=== PATIENT | male | born 1980 | race Caucasian/White ===

== ENCOUNTER 2017-08-23 00:32 | Emergency (ER) | payer OTHER ==
[~2017-08-23] VITALS: Ht 188 cm; Wt 90.7 kg
[~2017-08-23 00:32] MED LIST: BUTALB-APAP-CA1 EACH PO; HYDROXYZINE HCL25 M1 PO; IBUPROFEN 800800 MG PO; NOHOMEMEDICATIONS; XANAX 0.25 MG0.25 MG PO; XANAX 1 MG TABLE1 MG PO
[2017-08-23] MEDS ORDERED: NOHOMEMEDICATIONS (00:41)
[2017-08-23 02:47] VITALS: BP 00/00
[2017-08-23 05:32] LABS: ABSOLUTE LYMPHOCYTES 1.6 thou/uL (0.8-5.3); ABSOLUTE MONOCYTES 0.5 thou/uL (0.0-1.2); BASOPHILS 0.8 %; EOSINOPHILS 0.7 %; HEMATOCRIT 42.7 % (42.0-52.0); HEMOGLOBIN 14.4 gm/dL (14.0-18.0); LYMPHOCYTES 25.7 %; MCH 31.5 pg (26.0-34.0); MCHC 33.7 g/dL (28.0-37.0); MCV 93.6 fL (80.0-100.0); MONOCYTES 7.4 %; MPV 11.8 fl. (7.2-11.1); NUCLEATED RBCS 0 /100WBC; PLATELET COUNT* 119 thou/uL (150-400); POLYS 65.4 %; RBC 4.57 mil/uL (4.50-6.00); RDW-CV 13.7 % (10.5-14.5); WBC 6.1 thou/uL (4.0-11.0)
[2017-08-23 05:43] LABS: ALKALINE PHOSPHATASE 46 U/L (46-116); ANION GAP 11 mmol/L (7-16); BUN 14 mg/dL (7-18); CHLORIDE 107 mmol/L (98-107); CO2 28 mmol/L (21-32); CREATININE 1.2 mg/dL (0.6-1.3); GLUCOSE 87 mg/dL (70-99); POTASSIUM 3.8 mmol/L (3.5-5.1); SGOT 10 U/L (15-37); SGPT 14 U/L (30-65); SODIUM 146 mmol/L (136-145); TOTAL BILIRUBIN 0.4 mg/dL (<0.1-1.0); TOTAL PROTEIN 7.1 g/dL (6.4-8.2)
[2017-08-23 05:44] LABS: TROPONIN-I LEVEL <0.06 ng/mL (<0.06)
--- NOTE | 2017-08-23 10:49 | EKG ---
[place] [address] ELECTROCARDIOGRAM REPORT Name: JOHNNY GREENWOOD [id number] Admission: 08/23/17 Attend Phys: Discharge: 08/23/17 Date of : 82 Report #: [id number] THIS REPORT FOR: //name// [facility] ED Test Date: 2017-08-23 Test Time: 00:38:08 Pat Name: JOHNNY GREENWOOD Department: Room: Gender: M Cardiology Physician: FORTUNATO : 1980 Requested By: Nkechi Poon Order Number: [id number] MD: Anson Toney Measurements Intervals [place] Rate: 74 P: 58 OR: 172 QRS: 16 QRSD: 98 T: 55 QT: 364 QTc: 404 Interpretive Statements Sinus rhythm Probable left atrial enlargement RSR' in V1 or V2, right VCD or RVH No previous ECG available for comparison Electronically Signed On 08-23-2017 10:48:53 CDT by Anson Toney [email or web address] <ELECTRONICALLY SIGNED> By: Anson Toney MD, [facility] 08/23/17 1048 0038 0038 Anson Toney MD, FACC /EPI
[2018-02-27] MEDS ORDERED: KEPPRA750 MG PO (19:46)
[2018-02-27] MEDS ORDERED: ABILIFY10 MG PO (22:22)
== END 2017-08-23 05:26 | disposition home or self-care (01) ==
LOC: M.ERS 00:32
PROVIDERS: Emergency Medicine
DX: R10.13 Epigastric pain (principal); Z88.5 Allergy status to narcotic agent; Z88.6 Allergy status to analgesic agent

== ENCOUNTER 2017-10-01 14:10 | Emergency (ER) | payer OTHER ==
[~2017-10-01] VITALS: Ht 182.9 cm; Wt 90.7 kg
[2017-10-01 15:02] LABS: ABSOLUTE LYMPHOCYTES 0.9 thou/uL (0.8-5.3); ABSOLUTE MONOCYTES 0.4 thou/uL (0.0-1.2); ABSOLUTE NEUTROPHILS 2.4 thou/uL (1.6-8.1); BASOPHILS 1.1 %; EOSINOPHILS 1.1 %; HEMATOCRIT 41.2 % (42.0-52.0); HEMOGLOBIN 13.9 gm/dL (14.0-18.0); LYMPHOCYTES 23.6 %; MCH 31.5 pg (26.0-34.0); MCHC 33.7 g/dL (28.0-37.0); MCV 93.6 fL (80.0-100.0); MONOCYTES 10.7 %; MPV 11.4 fl. (7.2-11.1); NUCLEATED RBCS 0 /100WBC; PLATELET COUNT* 104 thou/uL (150-400); POLYS 63.5 %; RDW-CV 13.8 % (10.5-14.5); WBC 3.8 thou/uL (4.0-11.0)
[2017-10-01 15:15] LABS: URINE BILIRUBIN NEGATIVE (Negative); URINE BLOOD NEGATIVE (Negative); URINE CLARITY CLEAR; URINE COLOR YELLOW; URINE GLUCOSE-RANDOM NEGATIVE (Negative); URINE KETONES 1+ (Negative); URINE LEUKOCYTES-REFLEX NEGATIVE (Negative); URINE NITRITE-REFLEX NEGATIVE (Negative); URINE PROTEIN NEGATIVE (Negative); URINE UROBILINOGEN 0.2 E.U./dl (0.2-1.0)
[2017-10-01 15:23] LABS: AMP/METHAMP Negative (Negative); BARBITURATES Negative (Negative); BENZODIAZEPINES Negative (Negative); COCAINE Negative (Negative); METHADONE Negative (Negative); OPIATES Negative (Negative); PCP Negative (Negative); THC Negative (Negative)
[2017-10-01 15:28] LABS: POTASSIUM 4.2 mmol/L (3.5-5.1)
[2017-10-01 15:29] LABS: CALCIUM 8.8 mg/dL (8.5-10.1); CREATININE 1.2 mg/dL (0.6-1.3); TOTAL BILIRUBIN 0.8 mg/dL (<0.1-1.0); TOTAL PROTEIN 6.7 g/dL (6.4-8.2)
[2017-10-01 16:17] VITALS: BP 145/89
[2018-02-27] MEDS ORDERED: KEPPRA750 MG PO (19:46)
[2018-02-27] MEDS ORDERED: ABILIFY10 MG PO (22:22)
== END 2017-10-01 16:18 | disposition home or self-care (01) ==
LOC: M.ERS 14:10
PROVIDERS: Personal Emergency Response Attendant
DX: F41.9 Anxiety disorder, unspecified (principal); G89.29 Other chronic pain; M54.9 Dorsalgia, unspecified; Z88.6 Allergy status to analgesic agent; Z88.8 Allergy status to other drugs, medicaments and biological substances

== ENCOUNTER 2017-10-28 05:48 | Emergency (ER) | payer OTHER ==
[~2017-10-28] VITALS: Ht 188 cm; Wt 90.7 kg
[2017-10-28 06:25] LABS: ABSOLUTE LYMPHOCYTES 1.4 thou/uL (0.8-5.3); ABSOLUTE MONOCYTES 0.6 thou/uL (0.0-1.2); ABSOLUTE NEUTROPHILS 2.1 thou/uL (1.6-8.1); EOSINOPHILS 0.7 %; HEMATOCRIT 40.5 % (42.0-52.0); HEMOGLOBIN 13.6 gm/dL (14.0-18.0); MCH 31.5 pg (26.0-34.0); MCHC 33.6 g/dL (28.0-37.0); MCV 93.7 fL (80.0-100.0); MPV 10.8 fl. (7.2-11.1); NUCLEATED RBCS 0 /100WBC; PLATELET COUNT* 120 thou/uL (150-400); POLYS 50.3 %; RBC 4.32 mil/uL (4.50-6.00); RDW-CV 13.9 % (10.5-14.5); WBC 4.2 thou/uL (4.0-11.0)
[2017-10-28 06:41] LABS: ANION GAP 17 mmol/L (7-16); BUN 8 mg/dL (7-18); CALCIUM 9.2 mg/dL (8.5-10.1); CHLORIDE 103 mmol/L (98-107); CO2 20 mmol/L (21-32); CREATININE 1.3 mg/dL (0.6-1.3); GLUCOSE 68 mg/dL (70-99); POTASSIUM 3.6 mmol/L (3.5-5.1); SODIUM 140 mmol/L (136-145)
[2017-10-28 06:46] LABS: ALBUMIN 4.2 g/dL (3.4-5.0); ALKALINE PHOSPHATASE 34 U/L (46-116); LIPASE 48 U/L (73-393); SGOT 18 U/L (15-37); SGPT 21 U/L (30-65); TOTAL BILIRUBIN 0.7 mg/dL (<0.1-1.0); TOTAL PROTEIN 7.5 g/dL (6.4-8.2); TROPONIN-I LEVEL <0.06 ng/mL (<0.06)
[2017-10-28 09:52] VITALS: BP 0/0
[2018-02-27] MEDS ORDERED: KEPPRA750 MG PO (19:46)
[2018-02-27] MEDS ORDERED: ABILIFY10 MG PO (22:22)
== END 2017-10-28 09:53 | disposition home or self-care (01) ==
LOC: M.ERS 05:48
PROVIDERS: Emergency Medicine
DX: E16.2 Hypoglycemia, unspecified (principal); M54.5 Low back pain; G89.29 Other chronic pain; Z88.5 Allergy status to narcotic agent

== ENCOUNTER 2018-03-25 21:40 | Inpatient (IN) | payer OTHER ==
[~2018-03-25] VITALS: Ht 188 cm; Wt 93.4 kg
[~2018-03-25 21:40] MED LIST changes: +ABILIFY10 MG PO; +KEPPRA750 MG PO
[2018-03-25 21:42] VITALS: BP 139/92
[2018-03-25] MEDS ORDERED: ABILIFY MAINTE300 M1 IM (21:51)
[2018-03-25] MEDS ORDERED: CORTEF 20 MG TA20 MG PO (21:52)
[2018-03-25 22:02] LABS: ABSOLUTE BASOPHILS 0.1 thou/uL (0.0-0.2); ABSOLUTE LYMPHOCYTES 0.9 thou/uL (0.8-5.3); ABSOLUTE MONOCYTES 0.4 thou/uL (0.0-1.2); BASOPHILS 1.1 %; EOSINOPHILS 0.4 %; HEMATOCRIT 39.5 % (42.0-52.0); HEMOGLOBIN 13.2 gm/dL (14.0-18.0); LYMPHOCYTES 16.8 %; MCH 31.6 pg (26.0-34.0); MCHC 33.4 g/dL (28.0-37.0); MCV 94.5 fL (80.0-100.0); MONOCYTES 6.6 %; MPV 10.5 fl. (7.2-11.1); NUCLEATED RBCS 0 /100WBC; PLATELET COUNT* 147 thou/uL (150-400); POLYS 75.1 %; RBC 4.18 mil/uL (4.50-6.00); RDW-CV 14.6 % (10.5-14.5); WBC 5.3 thou/uL (4.0-11.0)
[2018-03-25 22:16] LABS: URINE BILIRUBIN NEGATIVE (Negative); URINE BLOOD NEGATIVE (Negative); URINE CLARITY CLEAR; URINE COLOR YELLOW; URINE GLUCOSE-RANDOM NEGATIVE (Negative); URINE KETONES NEGATIVE (Negative); URINE LEUKOCYTES-REFLEX NEGATIVE (Negative); URINE NITRITE-REFLEX NEGATIVE (Negative); URINE PROTEIN NEGATIVE (Negative); URINE SPECIFIC GRAVITY <= 1.005 (1.005-1.030); URINE UROBILINOGEN 0.2 E.U./dl (0.2-1.0)
[2018-03-25 22:24] LABS: ANION GAP 9 mmol/L (7-16); BUN 10 mg/dL (7-18); CHLORIDE 106 mmol/L (98-107); CO2 26 mmol/L (21-32); CREATININE 1.1 mg/dL (0.6-1.3); GLUCOSE 87 mg/dL (70-99); POTASSIUM 4.1 mmol/L (3.5-5.1); SODIUM 141 mmol/L (136-145)
[2018-03-25 22:43] LABS: ALBUMIN 3.9 g/dL (3.4-5.0); ALKALINE PHOSPHATASE 37 U/L (46-116); LIPASE 87 U/L (73-393); SGOT 17 U/L (15-37); SGPT 30 U/L (30-65); TOTAL BILIRUBIN 0.3 mg/dL (<0.1-1.0); TOTAL PROTEIN 7.2 g/dL (6.4-8.2); TROPONIN-I LEVEL <0.06 ng/mL (<0.06)
[2018-03-25 22:46] LABS: AMP/METHAMP Negative (Negative); BARBITURATES Negative (Negative); BENZODIAZEPINES Negative (Negative); COCAINE Negative (Negative); METHADONE Negative (Negative); OPIATES Negative (Negative); PCP Negative (Negative); THC Negative (Negative)
[2018-03-26 00:40] VITALS: BP 134/85
[2018-03-26 00:45] VITALS: BP 123/82
[2018-03-26 04:41] VITALS: BP 116/63
[2018-03-26 08:00] VITALS: BP 129/85
--- NOTE | 2018-03-26 11:09 | EKG ---
[place] [address] ELECTROCARDIOGRAM REPORT Name: KRYSTYNAJOHNNY Room: [address] ADM IN ..#: [id number] Admission: 03/25/18 Attend Phys: Galindo Palacios, Discharge: Date of : 82 Report #: [id number] THIS REPORT FOR: //name// [facility] ED Test Date: 2018-03-25 Test Time: 21:53:45 Pat Name: JOHNNY GREENWOOD Department: Room: [facility] Gender: M Research Animal Attendant: Toño COREAS : 1980 Requested By: Husam Begum Order Number: [id number] MD: Anson Toney Measurements Intervals [place] Rate: 87 P: 34 DC: 152 QRS: -17 QRSD: 98 T: 34 QT: 375 QTc: 451 Interpretive Statements Sinus rhythm Borderline left axis deviation RSR' in V1 or V2, probably normal variant ST elev, probable normal early repol pattern Compared to ECG 08/23/2017 00:38:08 no change Electronically Signed On 03-26-2018 11:09:40 CDT by Anson Toney [email or web address] <ELECTRONICALLY SIGNED> By: Anson Toney MD, FACC 03/26/18 1109 52 52 Anson Toney MD, FAC /EPI
[2018-03-26 16:00] VITALS: BP 129/72
[2018-03-26 20:00] VITALS: BP 113/71
[2018-03-26 23:05] LABS: URINE BILIRUBIN NEGATIVE (Negative); URINE BLOOD NEGATIVE (Negative); URINE CLARITY CLEAR; URINE COLOR YELLOW; URINE GLUCOSE-RANDOM NEGATIVE (Negative); URINE KETONES NEGATIVE (Negative); URINE LEUKOCYTES-REFLEX NEGATIVE (Negative); URINE NITRITE-REFLEX NEGATIVE (Negative); URINE PROTEIN NEGATIVE (Negative); URINE SPECIFIC GRAVITY 1.015 (1.005-1.030); URINE UROBILINOGEN 0.2 E.U./dl (0.2-1.0)
[2018-03-27] VITALS: BP 129/76
[2018-03-27 04:00] VITALS: BP 114/62
[2018-03-27 08:00] VITALS: BP 118/79
[2018-03-27 11:48] VITALS: BP 114/64
[2018-03-27 20:00] VITALS: BP 128/71
[2018-03-28] VITALS: BP 118/70
[2018-03-28 08:00] VITALS: BP 110/63
[2018-03-28 16:00] VITALS: BP 122/72
[2018-03-28 20:00] VITALS: BP 126/79
[2018-03-29] VITALS: BP 113/59
[2018-03-29 16:00] VITALS: BP 136/81
[2018-03-29 19:49] VITALS: BP 131/83
[2018-03-30 08:43] VITALS: BP 121/76
[2018-03-30 11:13] VITALS: BP 121/76
[2018-03-30 11:22] VITALS: BP 121/76
[2018-03-30] MEDS ORDERED: NEURONTIN300 MG PO (11:25)
[2018-03-30] MEDS ORDERED: FLEXERIL PO (11:26)
[2018-03-30] MEDS ORDERED: TRAMADOL 50 MG50 MG PO (11:26)
[2018-03-30] MEDS ORDERED: IBUPROFEN 200200 M1 PO (11:27)
[2018-03-30] MEDS ORDERED: ATIVAN0.5 M1 PO (11:29)
[2018-03-30 13:15] VITALS: BP 143/94
[2018-03-30 13:40] VITALS: BP 143/94
--- NOTE | 2018-03-31 19:14 | EEG ---
[address] [address] EEG STUDY REPORT Name: JOHNNY GREENWOOD Room: [address] IN M.R.#: [id number] Admission: 03/25/18 Attend Phys: Galindo Palacios, Discharge: 03/30/18 Date of : 82 Report #: [id number] THIS REPORT FOR: //name// CC: Rodrigo Palacios DATE OF SERVICE: 03/27/2018 This patient is being evaluated for syncope. EEG was done by placing the electrodes by standard 10-20 system of electrode placement. Both referential and sequential montages were used for recording. Background activity in this patient's EEG is about 11 Hz and 40 microvolt. The patient went to sleep that is associated with bilaterally symmetrical sleep spindle and vertex sharp waves. Photic stimulation is unremarkable. Throughout the record, no active epileptiform activity was noticed. IMPRESSION: This patient's EEG is within normal limits. Thank you very much for this referral. <ELECTRONICALLY SIGNED> By: Ulises Virk MD 03/31/18 1914 1708 1738Ulises Virk MD /nt
== END 2018-03-30 17:50 | disposition home or self-care (01) | DRG 552 ==
LOC: M.ERS 21:40 → M.TBA-ER 23:41 → M.2W 23:41 → M.ORTHSURG 03-29 08:08
PROVIDERS: Emergency Medicine Emergency Medical Services; Urology; ADMIT Family Medicine
DX: M48.061 Spinal stenosis, lumbar region without neurogenic claudication (principal); E27.40 Unspecified adrenocortical insufficiency; M47.896 Other spondylosis, lumbar region; R33.9 Retention of urine, unspecified; S83.282A Other tear of lateral meniscus, current injury, left knee, initial encounter; G89.29 Other chronic pain; M54.9 Dorsalgia, unspecified; Z88.6 Allergy status to analgesic agent; Z88.8 Allergy status to other drugs, medicaments and biological substances; Z82.49 Family history of ischemic heart disease and other diseases of the circulatory system; Z82.0 Family history of epilepsy and other diseases of the nervous system; Z87.891 Personal history of nicotine dependence

== ENCOUNTER 2018-04-21 18:44 | Emergency (ER) | payer OTHER ==
[~2018-04-21] VITALS: Ht 188 cm; Wt 95.3 kg
[~2018-04-21 18:44] MED LIST changes: +ABILIFY MAINTE300 M1 IM; +ATIVAN0.5 M1 PO; +CORTEF 20 MG TA20 MG PO; +FLEXERIL PO; +IBUPROFEN 200200 M1 PO; +NEURONTIN300 MG PO; +TRAMADOL 50 MG50 MG PO
[2018-04-21] MEDS ORDERED: KEPPRA1000 MG PO (19:02)
[2018-04-21] MEDS ORDERED: DEPAKOTE250 MG PO (19:02)
[2018-04-21 19:41] LABS: ABSOLUTE LYMPHOCYTES 0.9 thou/uL (0.8-5.3); ABSOLUTE MONOCYTES 0.4 thou/uL (0.0-1.2); ABSOLUTE NEUTROPHILS 4.8 thou/uL (1.6-8.1); BASOPHILS 0.6 %; EOSINOPHILS 0.2 %; HEMATOCRIT 37.1 % (42.0-52.0); HEMOGLOBIN 12.4 gm/dL (14.0-18.0); LYMPHOCYTES 14.8 %; MCH 32.2 pg (26.0-34.0); MCHC 33.6 g/dL (28.0-37.0); MCV 96.1 fL (80.0-100.0); MONOCYTES 6.2 %; MPV 11.2 fl. (7.2-11.1); NUCLEATED RBCS 0 /100WBC; PLATELET COUNT* 127 thou/uL (150-400); POLYS 78.2 %; RBC 3.86 mil/uL (4.50-6.00); WBC 6.1 thou/uL (4.0-11.0)
[2018-04-21 19:50] LABS: CALCIUM 8.9 mg/dL (8.5-10.1); CREATININE 1.3 mg/dL (0.6-1.3); POTASSIUM 4.3 mmol/L (3.5-5.1)
[2018-04-21 19:54] LABS: ALBUMIN 3.8 g/dL (3.4-5.0); TOTAL BILIRUBIN 0.3 mg/dL (<0.1-1.0); TOTAL PROTEIN 6.6 g/dL (6.4-8.2)
[2018-04-21 20:26] LABS: URINE BILIRUBIN NEGATIVE (Negative); URINE BLOOD NEGATIVE (Negative); URINE CLARITY CLEAR; URINE COLOR YELLOW; URINE GLUCOSE-RANDOM NEGATIVE (Negative); URINE KETONES NEGATIVE (Negative); URINE LEUKOCYTES NEGATIVE (Negative); URINE NITRITE NEGATIVE (Negative); URINE PROTEIN NEGATIVE (Negative); URINE UROBILINOGEN 0.2 E.U./dl (0.2-1.0)
[2018-04-21 20:31] LABS: AMP/METHAMP Negative (Negative); BARBITURATES Negative (Negative); BENZODIAZEPINES Negative (Negative); COCAINE Negative (Negative); METHADONE Negative (Negative); OPIATES Negative (Negative); PCP Negative (Negative); THC Negative (Negative)
[2018-04-21 22:05] VITALS: BP 137/80
== END 2018-04-21 22:06 | disposition still patient (30) ==
LOC: M.ERS 18:44
PROVIDERS: Nurse Practitioner Family
DX: S83.92XA Sprain of unspecified site of left knee, initial encounter (principal); G40.909 Epilepsy, unspecified, not intractable, without status epilepticus; Z88.6 Allergy status to analgesic agent; Z88.8 Allergy status to other drugs, medicaments and biological substances; X58.XXXA Exposure to other specified factors, initial encounter; Y93.89 Activity, other specified; Y92.89 Other specified places as the place of occurrence of the external cause; Y99.8 Other external cause status

== ENCOUNTER 2018-06-13 07:19 | Emergency (ER) | payer MEDICAID ==
[~2018-06-13] VITALS: Ht 188 cm; Wt 95.3 kg
[~2018-06-13 07:19] MED LIST changes: +CORTEF5 MG PO; +DEPAKOTE250 MG PO; +KEPPRA1000 MG PO
[2018-06-13] MEDS ORDERED: HYDROCORTISONE30 G9 PO (07:46)
[2018-06-13 08:32] LABS: ABSOLUTE LYMPHOCYTES 0.8 thou/uL (0.8-5.3); ABSOLUTE MONOCYTES 0.5 thou/uL (0.0-1.2); ABSOLUTE NEUTROPHILS 2.9 thou/uL (1.6-8.1); BASOPHILS 0.7 %; EOSINOPHILS 0.8 %; HEMATOCRIT 38.5 % (42.0-52.0); HEMOGLOBIN 12.9 gm/dL (14.0-18.0); LYMPHOCYTES 18.3 %; MCH 32.2 pg (26.0-34.0); MCHC 33.5 g/dL (28.0-37.0); MCV 96.1 fL (80.0-100.0); MONOCYTES 11.1 %; MPV 10.2 fl. (7.2-11.1); NUCLEATED RBCS 0 /100WBC; PLATELET COUNT* 101 thou/uL (150-400); POLYS 69.1 %; RBC 4.01 mil/uL (4.50-6.00); RDW-CV 13.9 % (10.5-14.5); WBC 4.2 thou/uL (4.0-11.0)
[2018-06-13 08:45] LABS: CALCIUM 8.5 mg/dL (8.5-10.1); CREATININE 1.3 mg/dL (0.6-1.3); POTASSIUM 4.2 mmol/L (3.5-5.1)
[2018-06-13 08:49] LABS: ALBUMIN 3.3 g/dL (3.4-5.0); TOTAL BILIRUBIN 0.2 mg/dL (<0.1-1.0); TOTAL PROTEIN 6.5 g/dL (6.4-8.2)
[2018-06-13] MEDS ORDERED: MOBIC15 MG PO (10:10)
[2018-06-13 10:16] VITALS: BP 142/90
== END 2018-06-13 10:18 | disposition home or self-care (01) ==
LOC: M.ERS 07:19
PROVIDERS: Personal Emergency Response Attendant
DX: M25.562 Pain in left knee (principal); F41.9 Anxiety disorder, unspecified; R19.7 Diarrhea, unspecified; M54.9 Dorsalgia, unspecified; G89.29 Other chronic pain; Z88.5 Allergy status to narcotic agent; Z88.8 Allergy status to other drugs, medicaments and biological substances; Z95.5 Presence of coronary angioplasty implant and graft

== ENCOUNTER 2018-07-15 12:28 | Emergency (ER) | payer MEDICAID ==
[~2018-07-15] VITALS: Ht 188 cm; Wt 95.3 kg
[~2018-07-15 12:28] MED LIST changes: +BANOPHEN25 M1 PO; +CARAFATE 11 GM/10 M1 PO; +HYDROCORTISONE30 G9 PO; +LIDOPATCH1 EACH TRANSDERM; +MELATONIN5 M1 PO; +MIRALAX17 GM PO; +MOBIC15 MG PO; +PROTONIX40 M1 PO; +TYLENOL325 MG PO
[2018-07-15 13:31] LABS: ABSOLUTE LYMPHOCYTES 0.9 thou/uL (0.8-5.3); ABSOLUTE MONOCYTES 0.3 thou/uL (0.0-1.2); ABSOLUTE NEUTROPHILS 2.5 thou/uL (1.6-8.1); BASOPHILS 1.1 %; EOSINOPHILS 0.6 %; HEMATOCRIT 39.1 % (42.0-52.0); HEMOGLOBIN 13.3 gm/dL (14.0-18.0); LYMPHOCYTES 23.9 %; MCH 31.8 pg (26.0-34.0); MCV 93.4 fL (80.0-100.0); MONOCYTES 8.3 %; MPV 11.8 fl. (7.2-11.1); NUCLEATED RBCS 0 /100WBC; PLATELET COUNT* 100 thou/uL (150-400); POLYS 66.1 %; RBC 4.18 mil/uL (4.50-6.00); WBC 3.7 thou/uL (4.0-11.0)
[2018-07-15 13:36] LABS: ANION GAP 6 mmol/L (7-16); BUN 12 mg/dL (7-18); CALCIUM 8.6 mg/dL (8.5-10.1); CHLORIDE 106 mmol/L (98-107); CO2 28 mmol/L (21-32); CREATININE 1.5 mg/dL (0.6-1.3); GLUCOSE 86 mg/dL (70-99); POTASSIUM 4.1 mmol/L (3.5-5.1); SODIUM 140 mmol/L (136-145)
[2018-07-15 13:42] LABS: ALBUMIN 3.6 g/dL (3.4-5.0); ALKALINE PHOSPHATASE 47 U/L (46-116); SGOT 10 U/L (15-37); SGPT 17 U/L (30-65); TOTAL BILIRUBIN 0.4 mg/dL (<0.1-1.0); TOTAL PROTEIN 6.7 g/dL (6.4-8.2); TROPONIN-I LEVEL <0.06 ng/mL (<0.06)
[2018-07-15 13:50] LABS: AMP/METHAMP Negative (Negative); BARBITURATES Negative (Negative); BENZODIAZEPINES Negative (Negative); COCAINE Negative (Negative); METHADONE Negative (Negative); OPIATES Negative (Negative); PCP Negative (Negative); THC Negative (Negative)
[2018-07-15 13:52] LABS: APTT 27.6 Seconds (25.0-31.3); PROTIME 10.7 Seconds (9.20-11.50)
[2018-07-15 14:18] LABS: URINE BILIRUBIN NEGATIVE (Negative); URINE BLOOD NEGATIVE (Negative); URINE CLARITY CLEAR; URINE COLOR YELLOW; URINE GLUCOSE-RANDOM NEGATIVE (Negative); URINE KETONES NEGATIVE (Negative); URINE LEUKOCYTES-REFLEX NEGATIVE (Negative); URINE NITRITE-REFLEX NEGATIVE (Negative); URINE PROTEIN NEGATIVE (Negative); URINE SPECIFIC GRAVITY <= 1.005 (1.005-1.030); URINE UROBILINOGEN 0.2 E.U./dl (0.2-1.0)
[2018-07-15] MEDS ORDERED: LIDOCAINE VISC100 ML PO (14:42)
[2018-07-15 15:15] VITALS: BP 140/93
--- NOTE | 2018-07-16 12:25 | EKG ---
[place] [address] ELECTROCARDIOGRAM REPORT Name: JOHNNY GREENWOOD Room: [facility]#: [id number] Admission: 07/15/18 Attend Phys: Discharge: 07/15/18 Date of : [birth year] Report #: [id number] THIS REPORT FOR: //name// [facility] ED Test Date: 2018-07-15 Test Time: 13:12:01 Pat Name: JOHNNY GREENWOOD Department: Room: Gender: M Single Ending Machine Operator: Keny CHAWLA : 1980 Requested By: Marbella Jurado Order Number: [id number] MD: Yaakov Bearden Measurements Intervals [place] Rate: 72 P: 45 DE: 179 QRS: -19 QRSD: 102 T: 15 QT: 374 QTc: 410 Interpretive Statements Sinus rhythm Borderline left axis deviation Compared to ECG 03/25/2018 21:53:45 ST (T wave) deviation no longer present Electronically Signed On 07-16-2018 12:25:14 SHELL FREEZING MACHINE OPERATOR by Yaakov Bearden [email or web address] <ELECTRONICALLY SIGNED> By: Yaakov Bearden MD, [facility] 07/16/18 1225 1312 131 Yaakov Bearden MD, [facility] /EPI
== END 2018-07-15 15:15 | disposition left against medical advice (07) ==
LOC: M.ERS 12:28
PROVIDERS: Nurse Practitioner Family
DX: K20.9 Esophagitis, unspecified (principal); J02.9 Acute pharyngitis, unspecified; R07.89 Other chest pain; R06.00 Dyspnea, unspecified; M54.9 Dorsalgia, unspecified; G89.29 Other chronic pain; M25.569 Pain in unspecified knee; Z88.5 Allergy status to narcotic agent; Z88.8 Allergy status to other drugs, medicaments and biological substances

== ENCOUNTER 2018-07-23 01:17 | Emergency (ER) | payer MEDICAID ==
[~2018-07-23] VITALS: Ht 188 cm; Wt 95.3 kg
[~2018-07-23 01:17] MED LIST changes: +LIDOCAINE VISC100 ML PO
[2018-07-23 01:32] VITALS: BP 128/82
== END 2018-07-23 01:33 | disposition home or self-care (01) ==
LOC: M.ERS 01:17
DX: R11.2 Nausea with vomiting, unspecified (principal); G89.29 Other chronic pain; M54.9 Dorsalgia, unspecified; M25.569 Pain in unspecified knee; Z95.5 Presence of coronary angioplasty implant and graft; Z88.5 Allergy status to narcotic agent; Z88.8 Allergy status to other drugs, medicaments and biological substances

== ENCOUNTER 2018-08-18 20:18 | Emergency (ER) | payer MEDICAID ==
[~2018-08-18] VITALS: Ht 188 cm; Wt 109.5 kg
[2018-08-18 20:39] LABS: ABSOLUTE LYMPHOCYTES 1.2 thou/uL (0.8-5.3); ABSOLUTE MONOCYTES 0.3 thou/uL (0.0-1.2); ABSOLUTE NEUTROPHILS 4.6 thou/uL (1.6-8.1); BASOPHILS 0.7 %; EOSINOPHILS 0.4 %; HEMATOCRIT 40.9 % (42.0-52.0); HEMOGLOBIN 13.5 gm/dL (14.0-18.0); LYMPHOCYTES 18.9 %; MCH 30.9 pg (26.0-34.0); MCHC 33.1 g/dL (28.0-37.0); MCV 93.3 fL (80.0-100.0); MONOCYTES 5.6 %; MPV 10.3 fl. (7.2-11.1); NUCLEATED RBCS 0 /100WBC; PLATELET COUNT* 135 thou/uL (150-400); POLYS 74.4 %; RBC 4.38 mil/uL (4.50-6.00); RDW-CV 14.1 % (10.5-14.5); WBC 6.2 thou/uL (4.0-11.0)
[2018-08-18 20:53] LABS: PROTIME 10.3 Seconds (9.20-11.50)
[2018-08-18 20:59] LABS: CALCIUM 8.9 mg/dL (8.5-10.1); CREATININE 1.3 mg/dL (0.6-1.3); POTASSIUM 3.9 mmol/L (3.5-5.1); TOTAL BILIRUBIN 0.5 mg/dL (<0.1-1.0); TOTAL PROTEIN 7.4 g/dL (6.4-8.2)
[2018-08-18] MEDS ORDERED: PROTONIX40 MG PO (21:24)
[2018-08-18] MEDS ORDERED: ZOFRAN ODT4 MG PO (21:24)
[2018-08-18] MEDS ORDERED: CARAFATE 1 GM TA1 GM PO (21:24)
[2018-08-18 21:52] VITALS: BP 141/75
== END 2018-08-18 21:53 | disposition home or self-care (01) ==
LOC: M.ERS 20:18
PROVIDERS: Emergency Medicine
DX: K92.0 Hematemesis (principal); M54.9 Dorsalgia, unspecified; G89.29 Other chronic pain; M25.569 Pain in unspecified knee; Z88.5 Allergy status to narcotic agent; Z88.8 Allergy status to other drugs, medicaments and biological substances

== ENCOUNTER 2018-10-18 14:25 | Emergency (ER) | payer MEDICAID ==
[~2018-10-18] VITALS: Ht 188 cm; Wt 95.3 kg
[~2018-10-18 14:25] MED LIST changes: +BENADRYL A12.5 MG/5 PO; +CARAFATE 1 GM TA1 GM PO; +LIDOCAINE40 MG/1 ML PO; +PRILOSEC 20 MG20 MG PO; +PROTONIX40 MG PO; +ZOFRAN ODT4 MG PO
[2018-10-18 16:26] VITALS: BP 143/80
[2018-10-23] MEDS ORDERED: MELATONIN5 M1 PO (19:14)
== END 2018-10-18 16:26 | disposition home or self-care (01) ==
LOC: M.ERS 14:25
DX: R60.0 Localized edema (principal); M54.9 Dorsalgia, unspecified; G89.29 Other chronic pain; M25.562 Pain in left knee; Z88.5 Allergy status to narcotic agent; Z88.8 Allergy status to other drugs, medicaments and biological substances

== ENCOUNTER 2018-12-19 21:09 | Emergency (ER) | payer MEDICAID ==
[~2018-12-19] VITALS: Ht 188 cm; Wt 95.3 kg
[2018-12-19 21:39] LABS: ABSOLUTE MONOCYTES 0.4 thou/uL (0.0-1.2); ABSOLUTE NEUTROPHILS 4.7 thou/uL (1.6-8.1); BASOPHILS 0.8 %; EOSINOPHILS 0.2 %; HEMATOCRIT 40.4 % (42.0-52.0); HEMOGLOBIN 13.7 gm/dL (14.0-18.0); LYMPHOCYTES 16.2 %; MCH 31.1 pg (26.0-34.0); MCHC 33.8 g/dL (28.0-37.0); MCV 92.2 fL (80.0-100.0); MONOCYTES 6.4 %; MPV 11.1 fl. (7.2-11.1); NUCLEATED RBCS 0 /100WBC; PLATELET COUNT* 146 thou/uL (150-400); POLYS 76.4 %; RBC 4.39 mil/uL (4.50-6.00); RDW-CV 13.8 % (10.5-14.5); WBC 6.2 thou/uL (4.0-11.0)
[2018-12-19 21:46] LABS: CALCIUM 9.7 mg/dL (8.5-10.1); CREATININE 1.5 mg/dL (0.6-1.3); POTASSIUM 3.6 mmol/L (3.5-5.1)
[2018-12-19 21:50] LABS: ALBUMIN 4.4 g/dL (3.4-5.0); TOTAL BILIRUBIN 0.6 mg/dL (<0.1-1.0); TOTAL PROTEIN 7.8 g/dL (6.4-8.2)
[2018-12-19 22:31] LABS: URINE BILIRUBIN NEGATIVE (Negative); URINE BLOOD NEGATIVE (Negative); URINE CLARITY CLEAR; URINE COLOR YELLOW; URINE GLUCOSE-RANDOM NEGATIVE (Negative); URINE KETONES 1+ (Negative); URINE LEUKOCYTES-REFLEX NEGATIVE (Negative); URINE NITRITE-REFLEX NEGATIVE (Negative); URINE PROTEIN NEGATIVE (Negative); URINE UROBILINOGEN 0.2 E.U./dl (0.2-1.0)
[2018-12-19 22:38] LABS: AMP/METHAMP Negative (Negative); BARBITURATES Negative (Negative); BENZODIAZEPINES Negative (Negative); COCAINE Negative (Negative); METHADONE Negative (Negative); OPIATES Negative (Negative); PCP Negative (Negative); THC Negative (Negative)
[2018-12-19] MEDS ORDERED: BENTYL 20 MG TA20 M1 PO (22:55)
[2018-12-19] MEDS ORDERED: REGLAN 10 MG TA10 MG PO (22:55)
[2018-12-19 23:07] VITALS: BP 136/80
== END 2018-12-19 23:08 | disposition home or self-care (01) ==
LOC: M.ERS 21:09
PROVIDERS: Emergency Medicine
DX: R11.2 Nausea with vomiting, unspecified (principal); R10.84 Generalized abdominal pain; R10.13 Epigastric pain; G25.81 Restless legs syndrome; G89.29 Other chronic pain; M25.569 Pain in unspecified knee; M54.9 Dorsalgia, unspecified; Z88.5 Allergy status to narcotic agent; Z88.8 Allergy status to other drugs, medicaments and biological substances; Z95.5 Presence of coronary angioplasty implant and graft; Z79.899 Other long term (current) drug therapy

== ENCOUNTER 2019-01-28 13:37 | Emergency (ER) | payer MEDICAID ==
[~2019-01-28] VITALS: Ht 188 cm; Wt 95.3 kg
[~2019-01-28 13:37] MED LIST changes: +BENTYL 20 MG TA20 M1 PO; +CARAFATE 1 GM TA1 G1 PO; +LEVSIN0.125 MG PO; +ONDANSETRON ODT8 MG PO; +PRILOSEC OTC20 MG PO; +PROMS25 WY RECTAL; +REGLAN 10 MG TA10 MG PO
[2019-01-28 14:26] LABS: ABSOLUTE LYMPHOCYTES 0.9 thou/uL (0.8-5.3); ABSOLUTE MONOCYTES 0.4 thou/uL (0.0-1.2); ABSOLUTE NEUTROPHILS 2.1 thou/uL (1.6-8.1); BASOPHILS 0.9 %; EOSINOPHILS 0.6 %; HEMATOCRIT 41.3 % (42.0-52.0); HEMOGLOBIN 13.9 gm/dL (14.0-18.0); LYMPHOCYTES 25.9 %; MCH 31.9 pg (26.0-34.0); MCHC 33.7 g/dL (28.0-37.0); MCV 94.8 fL (80.0-100.0); MONOCYTES 11.7 %; MPV 10.7 fl. (7.2-11.1); NUCLEATED RBCS 0 /100WBC; PLATELET COUNT* 145 thou/uL (150-400); POLYS 60.9 %; RBC 4.36 mil/uL (4.50-6.00); RDW-CV 14.6 % (10.5-14.5); WBC 3.4 thou/uL (4.0-11.0)
[2019-01-28 14:36] LABS: ANION GAP 8 mmol/L (7-16); BUN 20 mg/dL (7-18); CHLORIDE 106 mmol/L (98-107); CO2 26 mmol/L (21-32); CREATININE 1.3 mg/dL (0.6-1.3); GLUCOSE 95 mg/dL (70-99); POTASSIUM 5.1 mmol/L (3.5-5.1); SODIUM 140 mmol/L (136-145)
[2019-01-28 14:48] LABS: ALBUMIN 4.2 g/dL (3.4-5.0); ALKALINE PHOSPHATASE 57 U/L (46-116); LIPASE 87 U/L (73-393); SGOT 18 U/L (15-37); SGPT 23 U/L (30-65); TOTAL BILIRUBIN 0.3 mg/dL (<0.1-1.0); TOTAL PROTEIN 7.7 g/dL (6.4-8.2); TROPONIN-I LEVEL <0.06 ng/mL (<0.06)
[2019-01-28] MEDS ORDERED: CITRATE OF MAG296 ML PO (15:40)
[2019-01-28] MEDS ORDERED: ONDANSETRON HCL4 M2 PO (15:40)
[2019-01-28 16:19] VITALS: BP 135/78
--- NOTE | 2019-01-29 08:42 | EKG ---
[place] [address] ELECTROCARDIOGRAM REPORT Name: JOHNNY GREENWOOD [facility] [id number] Admission: 01/28/19 Attend Phys: Discharge: 01/28/19 Date of : [birth year] Report #: [id number] THIS REPORT FOR: //name// [facility] ED Test Date: 2019-01-28 Test Time: 14:20:50 Pat Name: JOHNNY GREENWOOD Department: Room: Gender: M Life Science Research Assistant: : 1980 Requested By: Marbella Jurado Order Number: [id number] MD: Anson Toney Measurements Intervals [place] Rate: 60 P: 57 FL: 182 QRS: -4 QRSD: 106 T: 35 QT: 411 QTc: 411 Interpretive Statements Sinus rhythm ST elev, probable normal early repol pattern Compared to ECG 07/15/2018 13:12:01 no change Electronically Signed On 01-29-2019 8:42:10 CDT by Anson Toney [email or web address] <ELECTRONICALLY SIGNED> By: Anson Toney MD, [facility] 01/29/19 0842 142 1420 Anson Toney MD, FACC /EPI
== END 2019-01-28 16:22 | disposition home or self-care (01) ==
LOC: M.ERS 13:37
PROVIDERS: Nurse Practitioner Family
DX: K59.00 Constipation, unspecified (principal); R11.2 Nausea with vomiting, unspecified; M54.9 Dorsalgia, unspecified; G89.29 Other chronic pain; Z88.5 Allergy status to narcotic agent; Z88.8 Allergy status to other drugs, medicaments and biological substances; Z95.5 Presence of coronary angioplasty implant and graft

== ENCOUNTER 2019-02-10 12:43 | Emergency (ER) | payer MEDICAID ==
[~2019-02-10] VITALS: Ht 188 cm; Wt 95.3 kg
[~2019-02-10 12:43] MED LIST changes: +CITRATE OF MAG296 ML PO; +ONDANSETRON HCL4 M2 PO
[2019-02-10] MEDS ORDERED: CARAFATE 1 GM TA1 G1 PO (12:54)
[2019-02-10] MEDS ORDERED: PROTONIX40 M1 PO (12:54)
[2019-02-10 12:58] LABS: URINE BILIRUBIN NEGATIVE (Negative); URINE BLOOD NEGATIVE (Negative); URINE CLARITY CLEAR; URINE COLOR YELLOW; URINE GLUCOSE-RANDOM NEGATIVE (Negative); URINE KETONES NEGATIVE (Negative); URINE LEUKOCYTES-REFLEX NEGATIVE (Negative); URINE NITRITE-REFLEX NEGATIVE (Negative); URINE PROTEIN NEGATIVE (Negative); URINE UROBILINOGEN 0.2 E.U./dl (0.2-1.0)
[2019-02-10 13:22] LABS: ABSOLUTE LYMPHOCYTES 0.8 thou/uL (0.8-5.3); ABSOLUTE MONOCYTES 0.4 thou/uL (0.0-1.2); ABSOLUTE NEUTROPHILS 2.3 thou/uL (1.6-8.1); BASOPHILS 0.9 %; EOSINOPHILS 0.8 %; HEMATOCRIT 40.2 % (42.0-52.0); HEMOGLOBIN 13.6 gm/dL (14.0-18.0); LYMPHOCYTES 23.2 %; MCH 31.7 pg (26.0-34.0); MCHC 33.8 g/dL (28.0-37.0); MCV 93.8 fL (80.0-100.0); MONOCYTES 10.2 %; MPV 10.9 fl. (7.2-11.1); NUCLEATED RBCS 0 /100WBC; PLATELET COUNT* 121 thou/uL (150-400); POLYS 64.9 %; RBC 4.29 mil/uL (4.50-6.00); RDW-CV 14.3 % (10.5-14.5); WBC 3.5 thou/uL (4.0-11.0)
[2019-02-10 13:31] LABS: APTT 26.8 Seconds (25.0-31.3); PROTIME 10.1 Seconds (9.20-11.50)
[2019-02-10 13:40] LABS: CALCIUM 8.9 mg/dL (8.5-10.1); CREATININE 1.5 mg/dL (0.6-1.3)
[2019-02-10 13:44] LABS: TOTAL BILIRUBIN 0.4 mg/dL (<0.1-1.0); TOTAL PROTEIN 6.8 g/dL (6.4-8.2)
[2019-02-10] MEDS ORDERED: ACETAMINOPHEN-1 EAC1 PO (14:58)
[2019-02-10] MEDS ORDERED: LIDOCAINE VISC100 ML PO (14:58)
[2019-02-10] MEDS ORDERED: ONDANSETRON HCL4 M2 PO (14:58)
[2019-02-10 15:25] VITALS: BP 140/93
--- NOTE | 2019-02-11 11:15 | EKG ---
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 02/11/19 1115 131 Kalpana Soria MD, [facility] /EPI
== END 2019-02-10 15:26 | disposition home or self-care (01) ==
LOC: M.ERS 12:43
PROVIDERS: Nurse Practitioner Family
DX: R10.13 Epigastric pain (principal); G89.29 Other chronic pain; Z87.19 Personal history of other diseases of the digestive system; Z88.5 Allergy status to narcotic agent; Z88.8 Allergy status to other drugs, medicaments and biological substances; Z95.5 Presence of coronary angioplasty implant and graft

== ENCOUNTER 2019-04-01 22:54 | Inpatient (IN) | payer MEDICAID ==
[~2019-04-01] VITALS: Ht 188 cm; Wt 95.3 kg
--- NOTE | ~2019-04-01 | PROC ---
[facility] [address] [place] [address] PROCEDURE REPORT Name: JOHNNY GREENWOOD Room: [address] ADM IN M.R.#: [id number] Admission: 04/02/19 Attend Phys: Pedro Henriquez Discharge: Date of : 82 Report #: [id number] THIS REPORT FOR: //name// For GI report, please see the Provation report in Perceptive 7 content. By: 0652Medical Records Staff [facility] /FABIAN
[~2019-04-01 22:54] MED LIST changes: +ACETAMINOPHEN-1 EAC1 PO; +IBUPROFEN 600600 M1 PO; +ROBAXIN 750 MG750 MG PO
[2019-04-01 23:00] VITALS: BP 193/103
[2019-04-01 23:32] LABS: ABSOLUTE LYMPHOCYTES 1.1 thou/uL (0.8-5.3); ABSOLUTE MONOCYTES 0.3 thou/uL (0.0-1.2); ABSOLUTE NEUTROPHILS 2.5 thou/uL (1.6-8.1); BASOPHILS 0.6 %; EOSINOPHILS 0.7 %; HEMATOCRIT 40.2 % (42.0-52.0); HEMOGLOBIN 13.8 gm/dL (14.0-18.0); LYMPHOCYTES 27.3 %; MCH 31.6 pg (26.0-34.0); MCHC 34.4 g/dL (28.0-37.0); MCV 91.7 fL (80.0-100.0); MONOCYTES 7.4 %; MPV 11.5 fl. (7.2-11.1); NUCLEATED RBCS 0 /100WBC; PLATELET COUNT* 134 thou/uL (150-400); RBC 4.38 mil/uL (4.50-6.00); WBC 3.9 thou/uL (4.0-11.0)
[2019-04-01 23:48] LABS: URINE BILIRUBIN NEGATIVE (Negative); URINE BLOOD NEGATIVE (Negative); URINE CLARITY CLEAR; URINE COLOR STRAW; URINE GLUCOSE-RANDOM NEGATIVE (Negative); URINE KETONES NEGATIVE (Negative); URINE LEUKOCYTES-REFLEX NEGATIVE (Negative); URINE NITRITE-REFLEX NEGATIVE (Negative); URINE PROTEIN NEGATIVE (Negative); URINE UROBILINOGEN 0.2 E.U./dl (0.2-1.0)
[2019-04-01 23:49] LABS: AMP/METHAMP Negative (Negative); BARBITURATES Negative (Negative); BENZODIAZEPINES Negative (Negative); COCAINE Negative (Negative); METHADONE Negative (Negative); OPIATES Negative (Negative); PCP Negative (Negative); THC Negative (Negative)
[2019-04-01 23:50] LABS: CALCIUM 9.5 mg/dL (8.5-10.1); CREATININE 1.3 mg/dL (0.6-1.3); POTASSIUM 3.4 mmol/L (3.5-5.1)
[2019-04-01 23:54] LABS: ALBUMIN 4.3 g/dL (3.4-5.0); TOTAL BILIRUBIN 0.6 mg/dL (<0.1-1.0); TOTAL PROTEIN 7.5 g/dL (6.4-8.2)
[2019-04-02] VITALS (7 sets, daily range): BP systolic 130–155; BP diastolic 82–94
[2019-04-02] MEDS ORDERED: CARAFATE 1 GM TA1 GM PO (03:34)
[2019-04-02] MEDS ORDERED: PROTONIX40 M1 PO (03:34)
[2019-04-03 05:14] LABS: HEMOGLOBIN 12.3 gm/dL (14.0-18.0); MCH 31.5 pg (26.0-34.0); MCHC 34.2 g/dL (28.0-37.0); MCV 92.2 fL (80.0-100.0); MPV 10.9 fl. (7.2-11.1); RBC 3.9 mil/uL (4.50-6.00); WBC 3.3 thou/uL (4.0-11.0)
[2019-04-03 05:39] LABS: ALBUMIN 3.2 g/dL (3.4-5.0); CALCIUM 8.9 mg/dL (8.5-10.1); CREATININE 1.1 mg/dL (0.6-1.3); POTASSIUM 3.9 mmol/L (3.5-5.1); TOTAL BILIRUBIN 0.5 mg/dL (<0.1-1.0); TOTAL PROTEIN 5.9 g/dL (6.4-8.2)
[2019-04-03 08:00] VITALS: BP 138/88
[2019-04-03 10:32] VITALS: BP 128/78
[2019-04-03 13:57] LABS: % SATURATION 29 % (20-39); IRON 70 ug/dL (50-175)
[2019-04-03 16:07] VITALS: BP 147/93
[2019-04-04] VITALS: BP 119/71
[2019-04-04 05:00] LABS: HEMATOCRIT 37.3 % (42.0-52.0); HEMOGLOBIN 12.7 gm/dL (14.0-18.0); MCH 31.1 pg (26.0-34.0); MCHC 34.2 g/dL (28.0-37.0); MCV 91.1 fL (80.0-100.0); MPV 11.2 fl. (7.2-11.1); RBC 4.09 mil/uL (4.50-6.00); RDW-CV 13.9 % (10.5-14.5); WBC 4.9 thou/uL (4.0-11.0)
[2019-04-04 05:11] LABS: HEMOGLOBIN 13.5 g/dL (13.0-17.7)
[2019-04-04 06:03] LABS: ALBUMIN 3.5 g/dL (3.4-5.0); CALCIUM 8.6 mg/dL (8.5-10.1); CREATININE 1.1 mg/dL (0.6-1.3); POTASSIUM 3.6 mmol/L (3.5-5.1); TOTAL BILIRUBIN 0.5 mg/dL (<0.1-1.0); TOTAL PROTEIN 6.3 g/dL (6.4-8.2)
[2019-04-04 07:45] VITALS: BP 136/77
[2019-04-04] MEDS ORDERED: AMITRIPTYLINE H50 M2 PO (12:44)
[2019-04-04] MEDS ORDERED: TRAMADOL 50 MG50 MG PO (13:40)
[2019-04-04 15:26] VITALS: BP 136/77
[2019-04-04 16:19] VITALS: BP 140/83
--- NOTE | 2019-04-05 16:06 | PATH ---
[facility] [address] [place] [address] PATHOLOGY RPT PROCEDURE Name: JOHNNY GREENWOOD Room: [address] IN M.R.#: [id number] Admission: 04/02/19 Date of : 82 Discharge: 04/04/19 Report #: [id number] Path Case #: [id number] [facility] Accession Number: [id number] . 01 Material submitted: . PART A: esophagus - ESOPHAGEAL BIOPSY AT 35CM PART B: esophagus - ESOPHAGEAL BIOPSY AT 30CM . 01 Clinical history: . Dysphagia . 02 Diagnosis: A, B. Esophageal biopsy at 35 cm and at 30 cm: - Mild chronic esophagitis typical of reflux. See comment. (BRUNILDA:pit; 04/05/2019) QTP 04/05/2019 1041 Local . 02 Comment: Eosinophils average less than 2/hpf in both specimens. (BRUNILDA:pit; 04/05/2019) . 02 Electronically signed: . Spencer Farrar MD, Pathologist NPI- [id number] . 01 Gross description: . A. The specimen is received in formalin, labeled "Johnny Greenwood, esophageal biopsy 35 cm". Received are two segments of pale moya soft tissue ranging in size from 0.4 to 0.5 cm in maximum dimensions. The specimen is submitted entirely in cassette A1. . B. The specimen is received in formalin, labeled "Johnny Greenwood, esophageal biopsy 30 cm". Received are three segments of pale moya soft tissue ranging in size from 0.2 to 0.4 cm in maximum dimensions. The specimen is submitted entirely in cassette B1. (CAA; 04/04/2019) QAC/QAC 04/04/2019 08 Local . 02 Pathologist provided ICD-10: K20.9 . 02 CPT . 328564, 991693 Specimen Comment: A courtesy copy of this report has been sent to [phone] Specimen Comment: [phone] Specimen Comment: Report sent to / DR MCKINNEY Performed at: [address] [place] [address] PATHOLOGY RPT PROCEDURE Name: JOHNNY GREENWOOD Room: [address] DIS IN M.R.#: [id number] Admission: 04/02/19 Date of : 82 Discharge: 04/04/19 Report #: [id number] Path Case #: [id number] [facility] [place] [address], [place], [place] [id number] MD Lucian Esquivel MD Phone: [phone] Performed at: [address] [place], [place] [id number] MD Spencer Farrar MD Phone: [phone]
--- NOTE | 2019-04-07 13:09 | CON ---
[address] [address] CONSULTATION Name: JOHNNY GREENWOOD TRACEY Room: [address] IN M.R.#: [id number] Admission: 04/02/19 Attend Phys: Pedro Henriquez Discharge: 04/04/19 Date of : [birth year] Report #: [id number] THIS REPORT FOR: //name// CC: Dr. Perla [facility] physician/PCP Chris Paris DICTATED BY: Ela Madrid [facility] DATE OF SERVICE: 04/02/2019 Please note at the time of this dictation, the patient was seen and physically examined by myself. REASON FOR CONSULTATION: Abdominal pain. HISTORY OF PRESENT ILLNESS: This is a 38-year-old male who has been complaining of abdominal pain; however, he states over the last 2 days, he has had difficulty swallowing that has been very painful with both liquids and solids in the upper part of his esophagus. He has also been having significant abdominal pain in the epigastric, but he also points to all throughout his colon of his abdomen that he has some discomfort. He states he had several episodes of hematemesis 2 days prior to him coming in, which has intensified his pain as well. The patient states his bowels are moving regularly. He denies any constipation or melena or bright red bloody stools at this time. He does not take anything for his bowels either. The patient had an EGD back in 06/[address] [facility] showed grade D esophagitis and a Jannet-Youngblood tear. Urine drug screen was negative. He was placed on Protonix b.i.d. and Carafate a.c. and at bedtime. He had a repeat upper scope in 11/2018. It showed a 3 cm hiatal hernia, Jannet-Youngblood tear was healing and some gastritis was noted. He was to continue with his prescribed medications at that time. The patient continues as said before having some abdominal discomfort, which he states this abdominal discomfort has been ongoing for several months. ALLERGIES: COMPAZINE, HALDOL, PHENERGAN, MORPHINE. MEDICATIONS FROM HOME: Pantoprazole and Carafate. PAST MEDICAL HISTORY: Chronic back pain, history of bulging disk. He has had a grand mal seizure, unknown etiology. He has got history of adrenal gland insufficiency. He has had esophagitis, small Jannet-Youngblood tear. PAST SURGICAL HISTORY: Left knee arthroscopic surgery, appendectomy at the end of November, urethral reconstruction as a child, recent disk surgery on 03/06, history of cardiac [place] [address] CONSULTATION Name: JOHNNY GREENWOOD Room: [address] IN ..#: [id number] Admission: 04/02/19 Attend Phys: Pedro Henriquez Discharge: 04/04/19 Date of : 82 Report #: [id number] FAMILY HISTORY: Negative for any GI or female cancers. SOCIAL HISTORY: He states he no longer drinks any alcohol, but it was only on occasion every other week he did have a couple of drinks, but he has not had any since 2013. Denies any illegal drug use and denies any tobacco use. REVIEW OF SYSTEMS: Twelve-point review of systems is essentially negative except what is mentioned in the HPI. PHYSICAL EXAMINATION: VITAL SIGNS: Temperature 36.5, pulse 69, respirations 16, blood pressure 130/82. HEART: Regular rate and rhythm. LUNGS: Clear. ABDOMEN: Soft, positive bowel sounds in all 4 quadrants with tenderness noted more excruciating in the epigastric area, however, noted throughout. LABORATORY DATA: Hemoglobin is 13.8, white count is 3.9, platelets 134. Lipase normal at 52, total bilirubin 0.6, alkaline phosphatase 57, ALT 20, AST is 10. Urine drug screen is negative here. CT of the abdomen and pelvis shows moderate stool throughout, stomach is fluid filled, otherwise is normal. IMPRESSION: 1. Hematemesis. 2. Odynophagia. 3. Abdominal pain, more severe in the epigastric, but also in the lower. 4. Pancytopenia. 5. Constipation. PLAN: 1. EGD tomorrow with Dr. Hendrickson. 2. Clear liquids today. 3. Continue his Protonix. 4. Labs in the a.m. CBC, CMP, PT, INR. 5. MiraLax b.i.d. Thank you for allowing us to participate in this patient's care. Please do not hesitate to call with any questions in regard to this consult. <ELECTRONICALLY SIGNED> By: Armen Hendrickson DO 04/07/19 1309 1134 1216Armen Hendrickson DO /nt
== END 2019-04-04 17:00 | disposition home or self-care (01) | DRG 378 ==
LOC: M.ERS 22:54 → M.3W 04-02 01:54 → M.TBA-ER 04-02 01:54 → M.3W 04-02 02:50
PROVIDERS: Family Medicine; Internal Medicine Hematology & Oncology; Nurse Practitioner Adult Health; Personal Emergency Response Attendant; ADMIT Internal Medicine
PROC: 0D758ZZ Dilation of Esophagus, Via Natural or Artificial Opening Endoscopic (ICD-10-PCS; principal; 2019-04-02)
PROC: 0DB58ZX Excision of Esophagus, Via Natural or Artificial Opening Endoscopic, Diagnostic (ICD-10-PCS; principal; 2019-04-02)
DX: K92.2 Gastrointestinal hemorrhage, unspecified (principal); D61.818 Other pancytopenia; G89.29 Other chronic pain; M54.9 Dorsalgia, unspecified; R13.10 Dysphagia, unspecified; K59.00 Constipation, unspecified; I10 Essential (primary) hypertension; K44.9 Diaphragmatic hernia without obstruction or gangrene; Z91.81 History of falling; Z79.899 Other long term (current) drug therapy; Z88.6 Allergy status to analgesic agent; Z88.8 Allergy status to other drugs, medicaments and biological substances; Z90.49 Acquired absence of other specified parts of digestive tract; Z82.49 Family history of ischemic heart disease and other diseases of the circulatory system; Z82.0 Family history of epilepsy and other diseases of the nervous system; Z23 Encounter for immunization

== ENCOUNTER 2019-04-11 18:06 | Emergency (ER) | payer MEDICAID ==
[~2019-04-11] VITALS: Ht 188 cm; Wt 95.3 kg
[~2019-04-11 18:06] MED LIST changes: +AMITRIPTYLINE H50 M2 PO
[2019-04-11 18:23] VITALS: BP 128/90
[2019-04-11 18:53] LABS: ABSOLUTE LYMPHOCYTES 1.1 thou/uL (0.8-5.3); ABSOLUTE MONOCYTES 0.4 thou/uL (0.0-1.2); ABSOLUTE NEUTROPHILS 2.5 thou/uL (1.6-8.1); BASOPHILS 0.8 %; EOSINOPHILS 0.9 %; HEMOGLOBIN 13.7 gm/dL (14.0-18.0); LYMPHOCYTES 27.5 %; MCH 31.6 pg (26.0-34.0); MCHC 34.2 g/dL (28.0-37.0); MCV 92.3 fL (80.0-100.0); MONOCYTES 10.3 %; MPV 10.7 fl. (7.2-11.1); NUCLEATED RBCS 0 /100WBC; PLATELET COUNT* 122 thou/uL (150-400); POLYS 60.5 %; RBC 4.33 mil/uL (4.50-6.00); RDW-CV 14.4 % (10.5-14.5); WBC 4.1 thou/uL (4.0-11.0)
[2019-04-11 19:02] LABS: CREATININE 1.4 mg/dL (0.6-1.3); POTASSIUM 3.7 mmol/L (3.5-5.1)
[2019-04-11 19:07] LABS: ALBUMIN 4.2 g/dL (3.4-5.0); TOTAL BILIRUBIN 0.4 mg/dL (<0.1-1.0); TOTAL PROTEIN 7.5 g/dL (6.4-8.2)
== END 2019-04-11 19:20 | disposition left against medical advice (07) ==
LOC: M.ERS 18:06
PROVIDERS: Family Medicine
DX: K20.9 Esophagitis, unspecified (principal); Z88.5 Allergy status to narcotic agent; Z88.8 Allergy status to other drugs, medicaments and biological substances; Z90.49 Acquired absence of other specified parts of digestive tract

== ENCOUNTER 2019-04-21 20:35 | Emergency (ER) | payer MEDICAID ==
[~2019-04-21] VITALS: Ht 188 cm; Wt 90.7 kg
[2019-04-21 21:21] LABS: ABSOLUTE LYMPHOCYTES 1.1 thou/uL (0.8-5.3); ABSOLUTE MONOCYTES 0.4 thou/uL (0.0-1.2); ABSOLUTE NEUTROPHILS 3.6 thou/uL (1.6-8.1); BASOPHILS 0.8 %; EOSINOPHILS 0.2 %; HEMOGLOBIN 13.4 gm/dL (14.0-18.0); LYMPHOCYTES 21.3 %; MCH 31.9 pg (26.0-34.0); MCHC 34.3 g/dL (28.0-37.0); MONOCYTES 7.6 %; MPV 9.8 fl. (7.2-11.1); NUCLEATED RBCS 0 /100WBC; PLATELET COUNT* 174 thou/uL (150-400); POLYS 70.1 %; RDW-CV 14.4 % (10.5-14.5); WBC 5.2 thou/uL (4.0-11.0)
[2019-04-21 21:33] LABS: CREATININE 1.4 mg/dL (0.6-1.3); POTASSIUM 4.5 mmol/L (3.5-5.1)
[2019-04-21 23:13] VITALS: BP 108/72
== END 2019-04-21 23:16 | disposition home or self-care (01) ==
LOC: M.ERS 20:35
PROVIDERS: Emergency Medicine
DX: K29.70 Gastritis, unspecified, without bleeding (principal); Z88.5 Allergy status to narcotic agent; Z88.8 Allergy status to other drugs, medicaments and biological substances; G89.29 Other chronic pain; Z95.5 Presence of coronary angioplasty implant and graft; Z90.49 Acquired absence of other specified parts of digestive tract

== ENCOUNTER 2019-04-24 23:35 | Emergency (ER) | payer MEDICAID ==
[~2019-04-24] VITALS: Ht 188 cm; Wt 90.7 kg
[2019-04-24 23:59] LABS: HEMATOCRIT 39.1 % (42.0-52.0); HEMOGLOBIN 13.4 gm/dL (14.0-18.0); MCH 31.9 pg (26.0-34.0); MCHC 34.2 g/dL (28.0-37.0); MCV 93.2 fL (80.0-100.0); MPV 10.3 fl. (7.2-11.1); RBC 4.19 mil/uL (4.50-6.00); RDW-CV 14.9 % (10.5-14.5); WBC 7.7 thou/uL (4.0-11.0)
[2019-04-25 00:07] LABS: CALCIUM 9.1 mg/dL (8.5-10.1); CREATININE 1.6 mg/dL (0.6-1.3); POTASSIUM 4.3 mmol/L (3.5-5.1)
[2019-04-25 00:11] LABS: ALBUMIN 3.9 g/dL (3.4-5.0); TOTAL BILIRUBIN 0.4 mg/dL (<0.1-1.0)
[2019-04-25 00:16] LABS: AMP/METHAMP Negative (Negative); BARBITURATES Negative (Negative); BENZODIAZEPINES Negative (Negative); COCAINE Negative (Negative); METHADONE Negative (Negative); OPIATES Negative (Negative); PCP Negative (Negative); THC Negative (Negative)
[2019-04-25 00:37] LABS: ACETAMINOPHEN < 2 ug/mL (10-30); SALICYLATE < 2.8 mg/dL (2.8-20.0)
[2019-04-25] MEDS ORDERED: ATIVAN0.5 M1 PO (00:41)
[2019-04-25 01:03] VITALS: BP 136/79
== END 2019-04-25 01:04 | disposition home or self-care (01) ==
LOC: M.ERS 23:35
PROVIDERS: Personal Emergency Response Attendant
DX: F10.129 Alcohol abuse with intoxication, unspecified (principal); Y90.6 Blood alcohol level of 120-199 mg/100 ml; R10.13 Epigastric pain; G89.29 Other chronic pain; Z88.5 Allergy status to narcotic agent; Z88.8 Allergy status to other drugs, medicaments and biological substances; Z90.49 Acquired absence of other specified parts of digestive tract; Z79.899 Other long term (current) drug therapy

== ENCOUNTER 2019-05-23 17:02 | Inpatient (IN) | payer MEDICAID ==
[~2019-05-23] VITALS: Ht 188 cm; Wt 97.1 kg
--- NOTE | ~2019-05-23 | PROC ---
[address] [address] PROCEDURE REPORT Name: JOHNNY GREENWOOD Room: [address] ADM IN M.R.#: [id number] Admission: 05/23/19 Attend Phys: Amy Phoenix MD Discharge: Date of : 82 Report #: [id number] THIS REPORT FOR: //name// For GI report, please see the Provation report in Perceptive 7 content. By: 1455Medical Records Staff [facility] /FABIAN
--- NOTE | ~2019-05-23 | CON ---
[facility] [address] [place] [address] CONSULTATION Name: JOHNNY GREENWOOD Room: [address] IN M.R.#: [id number] Admission: 05/23/19 Attend Phys: Amy Phoenix MD Discharge: Date of : [birth year] Report #: [id number] THIS REPORT FOR: //name// CC: [facility] physician/PCP Amy Phoenix DATE OF SERVICE: 05/24/2019 HISTORY OF PRESENT ILLNESS: This is a 39-year-old male patient, who was evaluated by me for seizures. The patient provided history that he used to have seizure as a child. Seizures were frequent and he was started on Dilantin. He is pretty certain it was not a febrile seizure. He was put on Dilantin and that he did not have any further seizure. Dilantin was discontinued some time, but he does not remember when and he did not have any seizure, off Dilantin either for several years. About a year and a half ago, he started having seizure. He described as grand mal seizure, but his history is very poor. He basically indicates that he had confusion and there is no witness to this seizure. He said the last seizure was a few days ago. His history also continued to vary a lot. He used to see Dr. Garsia, who is a neurologist and he has been on Keppra. He indicates he takes 1000 mg p.o. b.i.d. of Keppra and he continued to have seizures with that. REVIEW OF SYSTEMS: Also positive from the record for multiple things, which include chest pain, anxiety, and renal insufficiency. One of the records indicates alcohol intoxication. He had over a period of time edema, dysuria, dyspnea, fatigue, hematemesis, which is unwitnessed, leukopenia, low back pain. So, he had complained of multiple symptoms over a period of time. This was his relevant 14-point review of system, which was carried out. PAST MEDICAL HISTORY: Positive for seizure, according to him. He denies any anxiety or depression, but the records indicate otherwise. He had a Jannet-Youngblood tear, history of fall. He did not tell me that but looks like he had a lot of trouble with alcohol according to the record. He had a cardiac catheterization, which was negative. He indicates he has bulgng disk and he is on disability at the moment. 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 FAMILY HISTORY: According to him, multiple members including brother and father has seizures. SOCIAL HISTORY: He told me he does not drink alcohol, but apparently he used to drink heavily. PHYSICAL EXAMINATION: NEUROLOGIC: Indicate he is alert, he is responsive. He can follow simple and complex command. His speech, concentration, fund of knowledge and memory is at his baseline. His cranial nerve examination 2-12 [place] [address] CONSULTATION Name: KRYSTYNAJOHNNYSANGEETHA WEBB Room: [address] IN M.R.#: [id number] Admission: 05/23/19 Attend Phys: Amy Phoenix MD Discharge: Date of : 82 Report #: [id number] sensation, reflexes and tone looks symmetrical. There is no meningeal sign. There is no carotid bruit in this patient. I could not look at the fundus. CARDIAC: Appeared unremarkable. LUNGS: No respiratory difficulty was noticed. No rhonchi was noticed. VITAL SIGNS: Blood pressure is 108/60, respiration is 18, pulse is 60, and temperature is 97.8. LABORATORY DATA: His white count is only 3 and platelet count is down at 129. DIAGNOSTIC DATA: He did have a CT scan of the head that appear unremarkable. He said he never had an MRI of the brain, which will be a little unusual, but he insisted on that. IMPRESSION: History of seizure. We need to determine if present episodes are seizures or pseudoseizure. That is not an easy task and we do not have all the equipment here to even do those studies. I discussed that aspect with him. I said, we will go ahead and do the MRI of the brain with and without contrast if he never had one. I discussed the MRI and his option in that regard. I discussed with him, his contrast, his BUN and creatinine is normal, but I did not discuss with him the dermatological affect, which can cause some time and he wants to proceed with all those. We will go ahead and get a MRI done. We will get an EEG done. Presently, we will leave him on Keppra. If ultimately the conclusion is that the patient is having more seizure, he may have to go on Vimpat. If the conclusion is that they are pseudoseizure, then he may have to be referred to an epileptologist for a prolonged monitoring and then treatment accordingly. Thank you very much for this referral. By: 1203 1328Ulises Valladares MD /braxton
--- NOTE | ~2019-05-23 | EEG ---
[address] [address] EEG STUDY REPORT Name: JOHNNY GREENWOOD TRACEY Room: [address] IN M.R.#: [id number] Admission: 05/23/19 Attend Phys: Amy Phoenix MD Discharge: Date of : 82 Report #: [id number] THIS REPORT FOR: //name// CC: [facility] Physician staff Amy Phoenix DATE OF SERVICE: 05/24/2019 This patient is being evaluated for seizure. EEG was done by placing the electrode by standard 10-20 system of electrode placement. Both referential and sequential montages were used for recording. Background activity in this patient's EEG is about 10 Hz and 30 microvolts. The patient went to sleep and that is associated with bilateral slowing and vertex sharp waves. Photic stimulation is unremarkable. No active epileptiform activity was noticed during this record. IMPRESSION: This patient's EEG is within normal limits. Thank you very much for this referral. By: 0828 0837Ulises Valladares MD /nt
[2019-05-23 17:15] VITALS: BP 146/97
[2019-05-23] MEDS ORDERED: KEPPRA1000 MG PO (17:19)
[2019-05-23 17:52] LABS: ABSOLUTE LYMPHOCYTES 0.8 thou/uL (0.8-5.3); ABSOLUTE MONOCYTES 0.3 thou/uL (0.0-1.2); ABSOLUTE NEUTROPHILS 1.9 thou/uL (1.6-8.1); BASOPHILS 1.3 %; EOSINOPHILS 0.5 %; HEMATOCRIT 38.9 % (42.0-52.0); HEMOGLOBIN 13.4 gm/dL (14.0-18.0); LYMPHOCYTES 25.3 %; MCH 31.9 pg (26.0-34.0); MCHC 34.4 g/dL (28.0-37.0); MCV 92.9 fL (80.0-100.0); MONOCYTES 10.5 %; MPV 10.2 fl. (7.2-11.1); NUCLEATED RBCS 0 /100WBC; PLATELET COUNT* 122 thou/uL (150-400); POLYS 62.4 %; RBC 4.19 mil/uL (4.50-6.00); RDW-CV 15.2 % (10.5-14.5); WBC 3.1 thou/uL (4.0-11.0)
[2019-05-23 18:00] LABS: CALCIUM 9.3 mg/dL (8.5-10.1); CREATININE 1.3 mg/dL (0.6-1.3); POTASSIUM 4.2 mmol/L (3.5-5.1)
[2019-05-23 18:05] LABS: ALBUMIN 4.2 g/dL (3.4-5.0); TOTAL BILIRUBIN 0.5 mg/dL (<0.1-1.0); TOTAL PROTEIN 7.1 g/dL (6.4-8.2)
[2019-05-23 18:10] LABS: APTT 26.1 Seconds (25.0-31.3); PROTIME 10.7 Seconds (9.20-11.50)
[2019-05-23 19:46] LABS: URINE BILIRUBIN NEGATIVE (Negative); URINE BLOOD NEGATIVE (Negative); URINE CLARITY CLEAR; URINE COLOR YELLOW; URINE GLUCOSE-RANDOM NEGATIVE (Negative); URINE KETONES NEGATIVE (Negative); URINE LEUKOCYTES-REFLEX NEGATIVE (Negative); URINE NITRITE-REFLEX NEGATIVE (Negative); URINE PROTEIN NEGATIVE (Negative); URINE UROBILINOGEN 0.2 E.U./dl (0.2-1.0)
[2019-05-23 19:54] LABS: AMP/METHAMP Negative (Negative); BARBITURATES Negative (Negative); BENZODIAZEPINES Negative (Negative); COCAINE Negative (Negative); METHADONE Negative (Negative); OPIATES Negative (Negative); PCP Negative (Negative); THC Negative (Negative)
[2019-05-23 19:57] VITALS: BP 148/96
[2019-05-23 20:08] VITALS: BP 150/94
[2019-05-24] VITALS: BP 107/56
[2019-05-24 04:00] VITALS: BP 96/50
[2019-05-24 04:52] LABS: ABSOLUTE BASOPHILS 0.1 thou/uL (0.0-0.2); ABSOLUTE LYMPHOCYTES 1.4 thou/uL (0.8-5.3); ABSOLUTE MONOCYTES 0.3 thou/uL (0.0-1.2); ABSOLUTE NEUTROPHILS 1.2 thou/uL (1.6-8.1); BASOPHILS 1.8 %; EOSINOPHILS 1.2 %; HEMATOCRIT 34.8 % (42.0-52.0); HEMOGLOBIN 12.3 gm/dL (14.0-18.0); LYMPHOCYTES 46.6 %; MCH 32.6 pg (26.0-34.0); MCHC 35.3 g/dL (28.0-37.0); MCV 92.3 fL (80.0-100.0); NUCLEATED RBCS 0 /100WBC; PLATELET COUNT* 129 thou/uL (150-400); POLYS 39.4 %; RBC 3.77 mil/uL (4.50-6.00); RDW-CV 15.4 % (10.5-14.5)
[2019-05-24 05:01] LABS: CALCIUM 8.5 mg/dL (8.5-10.1); CREATININE 1.3 mg/dL (0.6-1.3); MAGNESIUM 2.1 mg/dL (1.8-2.4); POTASSIUM 3.9 mmol/L (3.5-5.1)
--- NOTE | 2019-05-24 06:07 | NUR ---
REPORT RECIEVED FROM ER. PT ORIENTED TO ROOM, CALL LIGHT SHOWN, FALL AGREEMENT GONE OVER, PT STATED UNDERSTANDING. ADMISSION DOCUMENTED. IV PATENT, FLUIDS INFUSING. PT REPORTED A HEADACHE BUT DID NOT WANT TYLENOL FOR IT. SEIZURE PRECAUTIONS IN PLACE. WILL CONTINUE WITH PLAN OF CARE.
[2019-05-24 08:00] VITALS: BP 108/60
--- NOTE | 2019-05-24 08:00 | NUR ---
ASSUMED PT CARE AT 0700, PT A&O X4, VSS, RA, CENTER HUMAN RESOURCES MANAGER TRACING SINUS RHYTHM WITH FIRST DEGREE AV BLOCK, FULL ASSESSMENT CHARTED. PT EDUCATED ON NPO STATUS, STATES UNDERSTANDING. PT STATES HE IS "STILL DIZZY AND DOESNT FEEL RIGHT FROM SEIZURES". WILL CONT POC.
[2019-05-24 11:56] VITALS: BP 145/82
--- NOTE | 2019-05-24 12:50 | EKG ---
[place] [address] ELECTROCARDIOGRAM REPORT Name: JOHNNY GREENWOOD Room: [address] ADM IN M.R.#: [id number] Admission: 05/23/19 Attend Phys: Amy Phoenix MD Discharge: Date of : 82 Report #: [id number] THIS REPORT FOR: //name// [facility] ED Test Date: 2019-05-23 Test Time: 18:31:55 Pat Name: JOHNNY GREENWOOD Department: Room: [facility] Gender: M Collar Separator: : 1980 Requested By: Katie Lynn Order Number: [id number] MD: Ender Fisher Measurements Intervals [place] Rate: 53 P: 64 [place]: 166 QRS: 1 QRSD: 107 T: 30 QT: 419 QTc: 394 Interpretive Statements Sinus rhythm Supraventricular bigeminy ST elev, probable normal early repol pattern Compared to ECG 02/10/2019 13:10:21 Atrial premature complex(es) now present ST (T wave) deviation now present Left ventricular hypertrophy no longer present Electronically Signed On 05-24-2019 12:49:42 BLOW DOWN HELPER by Ender Fisher [email or web address] <ELECTRONICALLY SIGNED> By: Ender Fisher MD, [facility] 05/24/19 1249 183 183 Ender Fisher MD, FAC /EPI
--- NOTE | 2019-05-24 13:30 | NUR ---
Pt out of the room at [facility], will f/u later
--- NOTE | 2019-05-24 14:27 | CON ---
[address] [address] CONSULTATION Name: JOHNNY GREENWOOD TRACEY Room: [address] IN M.R.#: [id number] Admission: 05/23/19 Attend Phys: Amy Phoenix MD Discharge: Date of : 82 Report #: [id number] THIS REPORT FOR: //name// CC: Dr. Perla, Primary Care Physician [facility] physician/PCP Amy Phoenix DICTATED BY: Ela Madrid [facility] DATE OF SERVICE: 05/24/2019 Please note at the time of this dictation, the patient was seen and physically examined by myself. REASON FOR CONSULTATION: Hematemesis. HISTORY OF PRESENT ILLNESS: This is a 39-year-old male who is well known to our practice, who was last seen in March for similar findings. He underwent an EGD at that time that showed small hiatal hernia and some gastritis. He was also complaining of dysphagia. He was dilated with a 58-Lithuanian with no acute changes and biopsies showed chronic esophagitis. He was placed on Protonix at that time. It appears he has been taking Protonix and Carafate as well since that time. He states about a week ago, he had some significant hematemesis and he has had that ongoing for the past week. He did have some prior to admission last night as well. He denies any melanotic stool. He states his bowels move on a daily basis without any issues. The patient was admitted because he had a seizure that he was unaware of. He found himself confused and on the floor. Since he lives alone, no one witnessed this and prompted him to come in to the Emergency Room to be evaluated. ALLERGIES: COMPAZINE, HALDOL, PHENERGAN AND MORPHINE. MEDICATIONS: From home include his Keppra, Protonix and Carafate. PAST MEDICAL HISTORY: Includes chronic back pain with bulging disks noted, grand mal seizures. He has had some esophagitis, hiatal hernia, history of a Jannet-Youngblood tear, history of alcohol use. He said he quit in June of this past year. Also, possible conversion disorder and he has been followed by Hematology regarding his thrombocytopenia. PAST SURGICAL HISTORY: He had some urethral strictures, he had a cardiac catheterization that was negative, left knee arthroscopy and an appendectomy. FAMILY HISTORY: Negative for any GI or female cancers. SOCIAL HISTORY: Denies any further alcohol use, [place] [address] CONSULTATION Name: JOHNNY GREENWOOD Room: [address] IN [facility]#: [id number] Admission: 05/23/19 Attend Phys: Amy Phoenix MD Discharge: Date of : 82 Report #: [id number] since that time. Denies any tobacco or illegal drug use. REVIEW OF SYSTEMS: Twelve-point review of systems is essentially negative except what is mentioned in the HPI. PHYSICAL EXAMINATION: VITAL SIGNS: Temperature 36.6, pulse 60, respirations 18, blood pressure 108/60. HEART: Regular rate and rhythm. LUNGS: Clear. ABDOMEN: Soft, positive bowel sounds in all 4 quadrants with some epigastric tenderness noted to palpation. LABORATORY DATA: Hemoglobin was 13.4 on admission, he is 12.3, white count is 3, platelets 129. PT 10.7, INR is 1. LFTs are completely normal. GFR is 62 and his alcohol was negative at that time. IMPRESSION: 1. Hematemesis. 2. Epigastric pain. 3. Thrombocytopenia seen by Hematology on last visit. 4. Seizure disorder. 5. Conversion disorder. PLAN: 1. EGD today with Dr. Mitchell. 2. Further recommendations to be made once the procedure has been performed. Thank you for allowing us to participate in this patient's care. Please do not hesitate to call with any questions in regard to this consult. <ELECTRONICALLY SIGNED> By: Ayush Mitchell MD 05/24/19 1427 1041 1245Ayush Mitchell MD /nt
[2019-05-24 20:00] VITALS: BP 107/67
[2019-05-25] VITALS: BP 95/59
--- NOTE | 2019-05-25 03:36 | NUR ---
ASSUMED PT CARE AT APPROX 1930. PT IS AWAKE AND ORIENTED X4. VSS ON ROOM AIR. CARD BRUSHER IN PLACE TRACING SR/SB. ASSESSMENT DONE AND CHARTED. PT C/O HEADACHE AND ABDOMINAL PAIN PARTIALLY RELIEVED BY PAIN MEDICINE GIVEN PER AUG. PT IS ABLE TO SLEEP THROUGH THE NIGHT. CALL LIGHT WITHIN REACH. SEIZURE AND FALL PRECAUTIONS IN PLACE. HOURLY ROUNDING DONE FOR PT SAFETY.
[2019-05-25 04:00] VITALS: BP 99/56
[2019-05-25 08:00] VITALS: BP 92/54
[2019-05-25 11:00] VITALS: BP 93/49
[2019-05-25 11:12] VITALS: BP 93/49
[2019-05-25 15:23] VITALS: BP 105/63
--- NOTE | 2019-05-25 17:04 | NUR ---
ASSUMED PT CARE AT 0730. ASSESSMENT COMPLETED CHARTED. ABLE TO MAKE NEEDS KNOWN. RESTING IN BED ALL DAY. DISCHARGE APPROVED, WENT OVER DISCHARGE PAPERWORK, NO COMMENTS, QUESTIONS, OR CONCERNS NOTED. IV AND HEART MONITOR REMOVED. WAITING FOR HIS FATHER TO GET TO THE HOSPITAL. UP WITH SBA, USES URINAL. NO C/O PAIN OR DISCOMFORT. PT LEFT TO WAIT FOR FATHER IN [facility] WAITING ROOM AT 1615. PT TOOK ALL BELONGINGS WITH HIM.
--- NOTE | 2019-05-28 15:07 | PATH ---
[address] [address] PATHOLOGY RPT PROCEDURE Name: JOHNNY GREENWOOD Room: [address] IN M.R.#: [id number] Admission: 05/23/19 Date of : 82 Discharge: 05/25/19 Report #: [id number] Path Case #: [id number] L[facility] Accession Number: [id number] . 01 Material submitted: . esophagus - ESOPHAGEAL BIOPSY . 01 Clinical history: . R/O Gonzlaez's . 02 Diagnosis: Esophageal biopsy: - Benign esophageal and gastric/columnar types mucosa with moderate chronic inflammation typical of reflux, negative for goblet cells/diagnostic Gonzalez's metaplasia and dysplasia. (BRUNILDA/db; 05/28/2019) LBQ 05/28/2019 1435 Local . 02 Electronically signed: . Sepncer Farrar MD, Pathologist NPI- [id number] . 01 Gross description: . Received in formalin labeled "Johnny Greenwood, esophageal biopsy R/O Gonzalez's," are two fragments of moya-brown soft tissue measuring 0.2 x 0.2 x 0.1 cm and 0.4 x 0.3 x 0.2 cm in greatest dimensions. The specimen is submitted entirely in cassette A1. (DAC; 05/25/2019) XDC/XDC 05/25/2019 1108 Local . 02 Pathologist provided ICD-10: K20.9 . 02 CPT . 260581 Specimen Comment: A courtesy copy of this report has been sent to [phone] Specimen Comment: [phone] Specimen Comment: Report sent to and Performed at: [address], [place] [address] MD Lucian Esquivel MD Phone: [phone] Performed at: 02 [facility] [address], [place], [place] [address] MD Spencer Farrar MD Phone: [phone]
== END 2019-05-25 16:20 | disposition home or self-care (01) | DRG 101 ==
LOC: M.ERS 17:02 → M.2W 18:28 → M.TBA-ER 18:28 → M.2W 20:08
PROVIDERS: Physician Assistant; ADMIT Family Medicine
PROC: 0DB48ZX Excision of Esophagogastric Junction, Via Natural or Artificial Opening Endoscopic, Diagnostic (ICD-10-PCS; principal; 2019-05-24)
DX: G40.909 Epilepsy, unspecified, not intractable, without status epilepticus (principal); R04.2 Hemoptysis; K92.0 Hematemesis; G89.29 Other chronic pain; M54.9 Dorsalgia, unspecified; D72.819 Decreased white blood cell count, unspecified; K21.9 Gastro-esophageal reflux disease without esophagitis; D69.6 Thrombocytopenia, unspecified; F44.9 Dissociative and conversion disorder, unspecified; K44.9 Diaphragmatic hernia without obstruction or gangrene; Z60.2 Problems related to living alone; K22.8 Other specified diseases of esophagus; Z91.81 History of falling; Z90.49 Acquired absence of other specified parts of digestive tract; Z88.8 Allergy status to other drugs, medicaments and biological substances; Z88.6 Allergy status to analgesic agent

== ENCOUNTER 2019-07-06 04:11 | Emergency (ER) | payer MEDICAID ==
[~2019-07-06] VITALS: Ht 188 cm; Wt 90.7 kg
[2019-07-06 04:47] LABS: ABSOLUTE LYMPHOCYTES 0.9 thou/uL (0.8-5.3); ABSOLUTE MONOCYTES 0.4 thou/uL (0.0-1.2); ABSOLUTE NEUTROPHILS 2.9 thou/uL (1.6-8.1); EOSINOPHILS 1.1 %; HEMATOCRIT 38.3 % (42.0-52.0); HEMOGLOBIN 13.2 gm/dL (14.0-18.0); MCHC 34.3 g/dL (28.0-37.0); MCV 93.2 fL (80.0-100.0); MONOCYTES 8.5 %; NUCLEATED RBCS 0 /100WBC; PLATELET COUNT* 118 thou/uL (150-400); POLYS 68.4 %; RBC 4.11 mil/uL (4.50-6.00); RDW-CV 14.3 % (10.5-14.5); WBC 4.2 thou/uL (4.0-11.0)
[2019-07-06 04:56] LABS: CALCIUM 8.8 mg/dL (8.5-10.1); POTASSIUM 4.1 mmol/L (3.5-5.1)
[2019-07-06 05:00] LABS: ALBUMIN 4.1 g/dL (3.4-5.0); TOTAL BILIRUBIN 0.4 mg/dL (<0.1-1.0); TOTAL PROTEIN 7.4 g/dL (6.4-8.2)
[2019-07-06] MEDS ORDERED: ZOFRAN ODT4 MG PO (05:17)
[2019-07-06 05:30] VITALS: BP 168/98
== END 2019-07-06 05:31 | disposition home or self-care (01) ==
LOC: M.ERS 04:11
PROVIDERS: Emergency Medicine
DX: R10.84 Generalized abdominal pain (principal); R11.2 Nausea with vomiting, unspecified; G89.29 Other chronic pain; Z88.8 Allergy status to other drugs, medicaments and biological substances; Z88.5 Allergy status to narcotic agent; Z90.49 Acquired absence of other specified parts of digestive tract

== ENCOUNTER 2019-07-06 08:44 | Emergency (ER) | payer MEDICAID ==
[~2019-07-06] VITALS: Ht 188 cm; Wt 90.7 kg
[2019-07-06 09:34] VITALS: BP 152/94
== END 2019-07-06 09:35 | disposition home or self-care (01) ==
LOC: M.ERS 08:44
DX: T18.5XXA Foreign body in anus and rectum, initial encounter (principal); Z88.6 Allergy status to analgesic agent; Z88.5 Allergy status to narcotic agent; Z88.8 Allergy status to other drugs, medicaments and biological substances; Z90.49 Acquired absence of other specified parts of digestive tract; X58.XXXA Exposure to other specified factors, initial encounter; Y93.89 Activity, other specified; Y92.89 Other specified places as the place of occurrence of the external cause; Y99.8 Other external cause status

== ENCOUNTER 2019-07-20 12:58 | Emergency (ER) | payer MEDICAID ==
[~2019-07-20] VITALS: Ht 188 cm; Wt 88.5 kg
[2019-07-20 13:38] LABS: ABSOLUTE LYMPHOCYTES 0.9 thou/uL (0.8-5.3); ABSOLUTE MONOCYTES 0.5 thou/uL (0.0-1.2); ABSOLUTE NEUTROPHILS 2.8 thou/uL (1.6-8.1); BASOPHILS 0.9 %; EOSINOPHILS 0.5 %; HEMATOCRIT 38.6 % (42.0-52.0); HEMOGLOBIN 13.1 gm/dL (14.0-18.0); LYMPHOCYTES 20.8 %; MCH 31.6 pg (26.0-34.0); MCHC 33.9 g/dL (28.0-37.0); MCV 93.3 fL (80.0-100.0); MONOCYTES 11.3 %; MPV 10.1 fl. (7.2-11.1); NUCLEATED RBCS 0 /100WBC; PLATELET COUNT* 145 thou/uL (150-400); POLYS 66.5 %; RBC 4.13 mil/uL (4.50-6.00); RDW-CV 14.6 % (10.5-14.5); WBC 4.1 thou/uL (4.0-11.0)
[2019-07-20 13:47] LABS: CALCIUM 8.1 mg/dL (8.5-10.1); CREATININE 1.2 mg/dL (0.6-1.3); POTASSIUM 4.1 mmol/L (3.5-5.1)
[2019-07-20 13:50] LABS: URINE BILIRUBIN NEGATIVE (Negative); URINE BLOOD NEGATIVE (Negative); URINE CLARITY CLEAR; URINE COLOR YELLOW; URINE GLUCOSE-RANDOM NEGATIVE (Negative); URINE KETONES NEGATIVE (Negative); URINE LEUKOCYTES-REFLEX NEGATIVE (Negative); URINE NITRITE-REFLEX NEGATIVE (Negative); URINE PROTEIN NEGATIVE (Negative); URINE UROBILINOGEN 0.2 E.U./dl (0.2-1.0)
[2019-07-20 13:51] LABS: ALBUMIN 3.7 g/dL (3.4-5.0); MAGNESIUM 1.8 mg/dL (1.8-2.4); TOTAL BILIRUBIN 0.3 mg/dL (<0.1-1.0); TOTAL PROTEIN 7.1 g/dL (6.4-8.2)
[2019-07-20] MEDS ORDERED: CARAFATE1 GM PO (14:03)
[2019-07-20] MEDS ORDERED: OMEPRAZOLE 20 M20 M1 PO (14:03)
[2019-07-20] MEDS ORDERED: TYLENOL WITH CO1 TA1 PO (14:03)
[2019-07-20] MEDS ORDERED: MAGNESIUM CITR100 MG PO (15:08)
[2019-07-20 15:27] VITALS: BP 128/89
== END 2019-07-20 15:27 | disposition home or self-care (01) ==
LOC: M.ERS 12:58
PROVIDERS: Nurse Practitioner Psychiatric/Mental Health
DX: K44.0 Diaphragmatic hernia with obstruction, without gangrene (principal); K27.9 Peptic ulcer, site unspecified, unspecified as acute or chronic, without hemorrhage or perforation; Z90.49 Acquired absence of other specified parts of digestive tract; Z95.5 Presence of coronary angioplasty implant and graft; Z88.6 Allergy status to analgesic agent; Z88.8 Allergy status to other drugs, medicaments and biological substances

== ENCOUNTER 2019-08-03 19:36 | Observation (INO) | payer MEDICAID ==
[~2019-08-03] VITALS: Ht 188 cm; Wt 86.6 kg
--- NOTE | ~2019-08-03 | OP ---
[address] [address] OPERATIVE REPORT Name: JOHNNY GREENWOOD Room: [address] Javier Garvin#: [id number] Admission: 08/03/19 Attend Phys: Iggy Aguirre DO Discharge: 08/04/19 Date of : 82 Report #: [id number] THIS REPORT FOR: //name// cc: MOMO Anguiano family physician/PCP MOMO - Annmarie family physician/PCP ~ THIS REPORT FOR: //name// CC: Iggy Aguirre [facility] physician/PCP DICTATED BY: Donato Joseph DO DATE OF SERVICE: 08/03/2019 PREPROCEDURE DIAGNOSIS: Rectal foreign body. POSTPROCEDURE DIAGNOSIS: Rectal foreign body. SURGEON: Iggy Aguirre DO CO-SURGEON: Donato Joseph, PGY4 MOTOR BOSS: None. OPERATION PERFORMED: Anal exam under anesthesia, removal of rectal foreign body. Rigid sigmoidoscopy. ANESTHESIA TYPE: General. ESTIMATED BLOOD LOSS: Zero. SPECIMEN REMOVED: Rectal foreign body. COMPLICATIONS: None. INDICATIONS: The patient is a 39-year-old male who presented to the ER with complaints of rectal foreign body. Multiple attempts were made at extraction in the ER unsuccessfully due to patient's discomfort. The patient was informed of the risks and benefits of anal exam under anesthesia and extraction of the foreign body. He consented to proceed. DESCRIPTION OF PROCEDURE: The patient was brought to the operating room and placed in the supine position. SCDs were on and running. General anesthesia was administered with an LMA. The patient was repositioned into lithotomy. The patient was prepped and draped in the usual sterile fashion. A surgical pause was held to confirm proper patient and procedure. A lubricated finger was [address] [address] OPERATIVE REPORT Name: KRYSTYNAJOHNNY TRACEY Room: [address] Javier Garvin#: [id number] Admission: 08/03/19 Attend Phys: Iggy Aguirre, DO Discharge: 08/04/19 Date of : 82 Report #: [id number] inserted into the anus to perform a digital rectal examination. The foreign body was immediately palpable, visual inspection of the anus was normal. The rectal foreign body was grasped with 2 fingers and extracted in one solid piece. This appeared to be a tire pressure gauge. This was placed aside. The anal exam was completed. There was no obvious injury to the anus. At this point, a rigid sigmoidoscope was inserted and the rectum was insufflated and the sigmoid was inspected in its entirety. There was no sign of mucosal injury or bleeding in the distal sigmoid or the rectal wall or the anus. After complete inspection, the sigmoidoscope was removed. The patient tolerated the procedure well. He was emerged from anesthesia and transferred to the PACU in stable condition. By: 2349 [id number] Aguirre DO /nt
[~2019-08-03 19:36] MED LIST changes: +CARAFATE1 GM PO; +MAGNESIUM CITR100 MG PO; +OMEPRAZOLE 20 M20 M1 PO; +TYLENOL WITH CO1 TA1 PO
[2019-08-03 19:39] VITALS: BP 145/88
[2019-08-03 20:38] LABS: URINE BILIRUBIN NEGATIVE (Negative); URINE BLOOD NEGATIVE (Negative); URINE CLARITY CLEAR; URINE COLOR YELLOW; URINE GLUCOSE-RANDOM NEGATIVE (Negative); URINE KETONES NEGATIVE (Negative); URINE LEUKOCYTES-REFLEX NEGATIVE (Negative); URINE NITRITE-REFLEX NEGATIVE (Negative); URINE PROTEIN NEGATIVE (Negative); URINE SPECIFIC GRAVITY <= 1.005 (1.005-1.030); URINE UROBILINOGEN 0.2 E.U./dl (0.2-1.0)
[2019-08-03 20:46] LABS: AMP/METHAMP Negative (Negative); BARBITURATES Negative (Negative); BENZODIAZEPINES Negative (Negative); COCAINE Negative (Negative); METHADONE Negative (Negative); OPIATES Negative (Negative); PCP Negative (Negative); THC Negative (Negative)
[2019-08-03 23:05] VITALS: BP 118/77
--- NOTE | 2019-08-04 00:25 | NUR ---
PT ADMITTED TO FLOOR FROM PACU PER BED ACCOMPANIED BY COMPRESSOR SERVICE TECHNICIAN. ORIENTED TO ROOM AND CALL LITE. HISTORY OBTAINED AND ASSESSMENT PERFORMED, SEE ADMIT NOTES. PT STATES HE IS ITCHING ON HIS CHEST AND ARMS, NO RASH SEEN-REQUESTING IV BENADRYL. RATING PAIN IN RECTUM /10-REQUESTING IV FENTANYL. 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 TYLENOL GIVEN FOR CO PAIN. AOX4, PLEASANT. SEE ADMIT NOTES. BED ALARM ON FOR SAFETY. LFA SL. ABLE TO USE CALL LITE AND MAKE NEEDS KNOWN. WILL CONTINUE TO MONITOR AND PROVIDE CARES NEEDED.
[2019-08-04 00:30] VITALS: BP 128/83
--- NOTE | 2019-08-04 07:43 | NUR ---
REPORT GIVEN TO DELIO SCHILLING. PT TRANSFERRED PER WHEELCHAIR WITH BELONGINGS TO [facility] ACCOMPANIED BY 3W COMBINE INSPECTOR WITH CHART.
[2019-08-04 09:10] VITALS: BP 116/64
[2019-08-04 15:54] VITALS: BP 116/64
--- NOTE | 2019-08-04 17:22 | NUR ---
ASSUMED CARE OF PATIENT AT APPROX 0730. ALERT AND OREINTED X4. ASSESSMENT COMPLETED AND CHARTED. VSS ON ROOM AIR. COMPLAINTS OF PAIN ADDRESSED WITH TYLENOL. TELEPSYCH ORDERED AND COMPLETED [facility] RECOMMEDATION FOR OUTPATIENT PSYCH FOLLOW UP. PATIENT IS READY FOR DISCHARGE AND IS AWAITING A TAXI TO TAKE HIM HOME.
--- NOTE | 2019-08-04 17:38 | NUR ---
PATIENT DISCHARGED AT 1735 WITH ALL PERSONAL BELONGINGS AND LEFT VIA TAXI.
== END 2019-08-04 17:35 | disposition home or self-care (01) ==
LOC: M.SUR 19:36 → M.ERS 19:36 → M.TBA 23:08 → M.3W 08-04 00:39 → M.ORTHSURG 08-04 07:39
PROVIDERS: Personal Emergency Response Attendant; ADMIT Surgery
DX: T18.5XXA Foreign body in anus and rectum, initial encounter (principal); Z82.49 Family history of ischemic heart disease and other diseases of the circulatory system; Y92.89 Other specified places as the place of occurrence of the external cause

== ENCOUNTER 2019-08-29 20:14 | Emergency (ER) | payer MEDICAID ==
[~2019-08-29] VITALS: Ht 188 cm; Wt 86.2 kg
[~2019-08-29 20:14] MED LIST changes: +PROTONIX40 M3 PO; +SENNA-TIME S T1 EACH PO
[2019-08-29 21:06] VITALS: BP 128/87
== END 2019-08-29 21:07 | disposition left against medical advice (07) ==
LOC: M.ERS 20:14
DX: T18.5XXA Foreign body in anus and rectum, initial encounter (principal); M54.9 Dorsalgia, unspecified; G89.29 Other chronic pain; Z90.49 Acquired absence of other specified parts of digestive tract; Z95.5 Presence of coronary angioplasty implant and graft; Z88.6 Allergy status to analgesic agent; Z88.8 Allergy status to other drugs, medicaments and biological substances; Y08.89XA Assault by other specified means, initial encounter; Y93.89 Activity, other specified; Y92.89 Other specified places as the place of occurrence of the external cause; Y99.8 Other external cause status

== ENCOUNTER 2019-09-08 04:56 | Emergency (ER) | payer MEDICAID ==
[~2019-09-08] VITALS: Ht 188 cm; Wt 86.2 kg
[2019-09-08 06:04] VITALS: BP 120/68
== END 2019-09-08 06:05 | disposition home or self-care (01) ==
LOC: M.ERS 04:56
DX: T18.5XXA Foreign body in anus and rectum, initial encounter (principal); G89.29 Other chronic pain; Z90.49 Acquired absence of other specified parts of digestive tract; Z95.5 Presence of coronary angioplasty implant and graft; Z88.6 Allergy status to analgesic agent; Z88.8 Allergy status to other drugs, medicaments and biological substances; X58.XXXA Exposure to other specified factors, initial encounter; Y93.89 Activity, other specified; Y92.89 Other specified places as the place of occurrence of the external cause; Y99.8 Other external cause status

== ENCOUNTER 2020-01-02 16:14 | Emergency (ER) | payer MEDICAID ==
[~2020-01-02] VITALS: Ht 188 cm; Wt 95.3 kg
[~2020-01-02 16:14] MED LIST changes: +KRISTALOSE20 GM PO
[2020-01-02 17:52] LABS: URINE BILIRUBIN NEGATIVE (Negative); URINE BLOOD NEGATIVE (Negative); URINE CLARITY CLEAR; URINE COLOR YELLOW; URINE GLUCOSE-RANDOM NEGATIVE (Negative); URINE KETONES NEGATIVE (Negative); URINE LEUKOCYTES-REFLEX NEGATIVE (Negative); URINE NITRITE-REFLEX NEGATIVE (Negative); URINE PROTEIN NEGATIVE (Negative); URINE UROBILINOGEN 0.2 E.U./dl (0.2-1.0)
[2020-01-02 18:08] LABS: ABSOLUTE LYMPHOCYTES 0.5 thou/uL (0.8-5.3); ABSOLUTE MONOCYTES 0.3 thou/uL (0.0-1.2); BASOPHILS 0.6 %; EOSINOPHILS 0.4 %; HEMATOCRIT 41.9 % (42.0-52.0); HEMOGLOBIN 14.3 gm/dL (14.0-18.0); MCH 32.7 pg (26.0-34.0); MCHC 34.2 g/dL (28.0-37.0); MCV 95.7 fL (80.0-100.0); MONOCYTES 8.2 %; MPV 9.8 fl. (7.2-11.1); NUCLEATED RBCS 0 /100WBC; PLATELET COUNT* 131 thou/uL (150-400); POLYS 76.8 %; RBC 4.38 mil/uL (4.50-6.00); RDW-CV 14.9 % (10.5-14.5); WBC 3.9 thou/uL (4.0-11.0)
[2020-01-02 18:17] LABS: CALCIUM 8.6 mg/dL (8.5-10.1); CREATININE 1.5 mg/dL (0.6-1.3); POTASSIUM 3.7 mmol/L (3.5-5.1)
[2020-01-02 18:18] LABS: APTT 25.9 Seconds (25.0-31.3); PROTIME 10.4 Seconds (9.20-11.50)
[2020-01-02 18:22] LABS: ALBUMIN 4.2 g/dL (3.4-5.0); TOTAL BILIRUBIN 0.4 mg/dL (<0.1-1.0); TOTAL PROTEIN 7.6 g/dL (6.4-8.2)
[2020-01-02] MEDS ORDERED: NORCO 5-325 TA1 EAC2 PO (18:54)
[2020-01-02 19:03] VITALS: BP 132/86
[2020-01-03] MEDS ORDERED: FLEXERIL PO ×3 (16:37→16:45)
[2020-01-03] MEDS ORDERED: PYRIDIUM100 M1 PO (16:43)
== END 2020-01-02 19:03 | disposition home or self-care (01) ==
LOC: M.ERS 16:14
PROVIDERS: Physician Assistant
DX: M54.5 Low back pain (principal); R31.9 Hematuria, unspecified; Z88.5 Allergy status to narcotic agent; Z88.8 Allergy status to other drugs, medicaments and biological substances; Z88.6 Allergy status to analgesic agent

== ENCOUNTER 2020-01-03 14:57 | Emergency (ER) | payer MEDICAID ==
[~2020-01-03] VITALS: Ht 188 cm; Wt 95.3 kg
[~2020-01-03 14:57] MED LIST changes: +NORCO 5-325 TA1 EAC2 PO
[2020-01-03 15:35] LABS: ABSOLUTE LYMPHOCYTES 0.9 thou/uL (0.8-5.3); ABSOLUTE MONOCYTES 0.5 thou/uL (0.0-1.2); ABSOLUTE NEUTROPHILS 2.9 thou/uL (1.6-8.1); BASOPHILS 0.9 %; EOSINOPHILS 0.7 %; HEMATOCRIT 39.4 % (42.0-52.0); HEMOGLOBIN 13.6 gm/dL (14.0-18.0); LYMPHOCYTES 20.3 %; MCH 33.1 pg (26.0-34.0); MCHC 34.4 g/dL (28.0-37.0); MONOCYTES 12.4 %; MPV 10.3 fl. (7.2-11.1); NUCLEATED RBCS 0 /100WBC; PLATELET COUNT* 141 thou/uL (150-400); POLYS 65.7 %; RDW-CV 14.7 % (10.5-14.5); WBC 4.4 thou/uL (4.0-11.0)
[2020-01-03 15:50] LABS: ALBUMIN 3.8 g/dL (3.4-5.0); CREATININE 1.4 mg/dL (0.6-1.3); POTASSIUM 4.1 mmol/L (3.5-5.1); TOTAL BILIRUBIN 0.3 mg/dL (<0.1-1.0); TOTAL PROTEIN 6.8 g/dL (6.4-8.2)
[2020-01-03 16:27] LABS: URINE BILIRUBIN NEGATIVE (Negative); URINE BLOOD NEGATIVE (Negative); URINE CLARITY CLEAR; URINE COLOR YELLOW; URINE GLUCOSE-RANDOM NEGATIVE (Negative); URINE KETONES NEGATIVE (Negative); URINE LEUKOCYTES-REFLEX NEGATIVE (Negative); URINE NITRITE-REFLEX NEGATIVE (Negative); URINE PROTEIN NEGATIVE (Negative); URINE UROBILINOGEN 0.2 E.U./dl (0.2-1.0)
[2020-01-03] MEDS ORDERED: FLEXERIL PO ×3 (16:37→16:45)
[2020-01-03] MEDS ORDERED: PYRIDIUM100 M1 PO (16:43)
[2020-01-03 16:55] VITALS: BP 133/76
== END 2020-01-03 16:57 | disposition home or self-care (01) ==
LOC: M.ERS 14:57
PROVIDERS: Nurse Practitioner Family
DX: N28.9 Disorder of kidney and ureter, unspecified (principal); M54.5 Low back pain; G89.29 Other chronic pain; Z76.5 Malingerer [conscious simulation]; Z88.5 Allergy status to narcotic agent; Z88.6 Allergy status to analgesic agent; Z88.8 Allergy status to other drugs, medicaments and biological substances; Z90.49 Acquired absence of other specified parts of digestive tract

== ENCOUNTER 2020-01-06 19:37 | Emergency (ER) | payer MEDICAID ==
[~2020-01-06 19:37] MED LIST changes: +PYRIDIUM100 M1 PO
== END 2020-01-06 19:50 | disposition left against medical advice (07) ==
LOC: M.ERS 19:37
DX: Z53.21 Procedure and treatment not carried out due to patient leaving prior to being seen by health care provider (principal)

== ENCOUNTER 2020-01-09 19:25 | Emergency (ER) | payer MEDICAID ==
[~2020-01-09] VITALS: Ht 188 cm; Wt 90.7 kg
[2020-01-09] MEDS ORDERED: BENTYL 20 MG TA20 M1 PO (19:46)
[2020-01-09 20:03] LABS: ABSOLUTE BASOPHILS 0.1 thou/uL (0.0-0.2); ABSOLUTE EOSINOPHILS 0.1 thou/uL (0.0-0.7); ABSOLUTE LYMPHOCYTES 0.8 thou/uL (0.8-5.3); ABSOLUTE MONOCYTES 0.5 thou/uL (0.0-1.2); ABSOLUTE NEUTROPHILS 4.3 thou/uL (1.6-8.1); EOSINOPHILS 1.4 %; HEMATOCRIT 40.1 % (42.0-52.0); HEMOGLOBIN 13.6 gm/dL (14.0-18.0); LYMPHOCYTES 13.8 %; MCH 32.8 pg (26.0-34.0); MCHC 33.8 g/dL (28.0-37.0); MONOCYTES 8.2 %; MPV 10.5 fl. (7.2-11.1); NUCLEATED RBCS 0 /100WBC; PLATELET COUNT* 164 thou/uL (150-400); POLYS 75.6 %; RBC 4.14 mil/uL (4.50-6.00); RDW-CV 14.9 % (10.5-14.5); WBC 5.7 thou/uL (4.0-11.0)
[2020-01-09 20:09] LABS: URINE BILIRUBIN NEGATIVE (Negative); URINE BLOOD NEGATIVE (Negative); URINE CLARITY CLEAR; URINE COLOR YELLOW; URINE GLUCOSE-RANDOM NEGATIVE (Negative); URINE KETONES TRACE (Negative); URINE LEUKOCYTES-REFLEX NEGATIVE (Negative); URINE NITRITE-REFLEX NEGATIVE (Negative); URINE PROTEIN NEGATIVE (Negative); URINE UROBILINOGEN 0.2 E.U./dl (0.2-1.0)
[2020-01-09 20:11] LABS: CALCIUM 8.3 mg/dL (8.5-10.1); CREATININE 1.2 mg/dL (0.6-1.3); POTASSIUM 3.9 mmol/L (3.5-5.1)
[2020-01-09 20:16] LABS: ALBUMIN 3.6 g/dL (3.4-5.0); TOTAL BILIRUBIN 0.3 mg/dL (<0.1-1.0); TOTAL PROTEIN 6.9 g/dL (6.4-8.2)
[2020-01-09] MEDS ORDERED: ONDANSETRON HCL4 M2 PO (22:00)
[2020-01-09 22:15] VITALS: BP 130/78
[2020-01-10] MEDS ORDERED: PROTONIX40 M2 PO (17:03)
[2020-01-10] MEDS ORDERED: CARAFATE1 GM/10 ML PO (17:03)
== END 2020-01-09 22:15 | disposition home or self-care (01) ==
LOC: M.ERS 19:25
PROVIDERS: Nurse Practitioner Family
DX: R10.84 Generalized abdominal pain (principal); G89.29 Other chronic pain; K62.5 Hemorrhage of anus and rectum; Z87.19 Personal history of other diseases of the digestive system; Z88.6 Allergy status to analgesic agent; Z88.5 Allergy status to narcotic agent; Z88.8 Allergy status to other drugs, medicaments and biological substances; Z90.49 Acquired absence of other specified parts of digestive tract; Z95.5 Presence of coronary angioplasty implant and graft

== ENCOUNTER 2020-01-10 16:41 | Emergency (ER) | payer MEDICAID ==
[~2020-01-10] VITALS: Ht 188 cm; Wt 90.7 kg
[2020-01-10] MEDS ORDERED: PROTONIX40 M2 PO (17:03)
[2020-01-10] MEDS ORDERED: CARAFATE1 GM/10 ML PO (17:03)
[2020-01-10 17:11] LABS: ABSOLUTE BASOPHILS 0.1 thou/uL (0.0-0.2); ABSOLUTE EOSINOPHILS 0.1 thou/uL (0.0-0.7); ABSOLUTE LYMPHOCYTES 0.9 thou/uL (0.8-5.3); ABSOLUTE MONOCYTES 0.5 thou/uL (0.0-1.2); BASOPHILS 0.9 %; EOSINOPHILS 0.9 %; HEMATOCRIT 40.4 % (42.0-52.0); HEMOGLOBIN 13.7 gm/dL (14.0-18.0); LYMPHOCYTES 13.8 %; MCH 32.6 pg (26.0-34.0); MCHC 33.8 g/dL (28.0-37.0); MCV 96.2 fL (80.0-100.0); MONOCYTES 8.1 %; MPV 10.2 fl. (7.2-11.1); NUCLEATED RBCS 0 /100WBC; PLATELET COUNT* 184 thou/uL (150-400); POLYS 76.3 %; RBC 4.19 mil/uL (4.50-6.00); RDW-CV 14.9 % (10.5-14.5); WBC 6.5 thou/uL (4.0-11.0)
[2020-01-10 17:17] LABS: CALCIUM 8.5 mg/dL (8.5-10.1); CREATININE 1.4 mg/dL (0.6-1.3); POTASSIUM 3.8 mmol/L (3.5-5.1)
[2020-01-10 17:21] LABS: ALBUMIN 3.9 g/dL (3.4-5.0); TOTAL BILIRUBIN 0.4 mg/dL (<0.1-1.0); TOTAL PROTEIN 7.3 g/dL (6.4-8.2)
[2020-01-10 20:08] VITALS: BP 117/93
== END 2020-01-10 20:08 | disposition left against medical advice (07) ==
LOC: M.ERS 16:41
PROVIDERS: Physician Assistant
DX: T18.5XXA Foreign body in anus and rectum, initial encounter (principal); G89.29 Other chronic pain; Z95.5 Presence of coronary angioplasty implant and graft; Z90.49 Acquired absence of other specified parts of digestive tract; Z88.6 Allergy status to analgesic agent; Z88.8 Allergy status to other drugs, medicaments and biological substances; X58.XXXA Exposure to other specified factors, initial encounter; Y93.89 Activity, other specified; Y92.89 Other specified places as the place of occurrence of the external cause; Y99.8 Other external cause status

== ENCOUNTER 2020-03-20 14:56 | Observation (INO) | payer MEDICAID ==
[~2020-03-20] VITALS: Ht 188 cm; Wt 89.8 kg
--- NOTE | ~2020-03-20 | OP ---
[address] [address] OPERATIVE REPORT Name: JOHNNY GREENWOOD Room: [address] M.RKarina#: [id number] Admission: 03/20/20 Attend Phys: Pedro Henriquez Discharge: Date of : 82 Report #: [id number] THIS REPORT FOR: //name// cc: MOMO Anguiano family physician/PCP MOMO Anguiano family physician/PCP ~ CC: [facility] physician/PCP Chris Paris DO DATE OF SERVICE: 03/21/2020 PREOPERATIVE DIAGNOSIS: Rectal foreign bodies. POSTOPERATIVE DIAGNOSIS: Rectal foreign bodies. OPERATIVE PROCEDURE: Evaluation under anesthesia and retrieval of two foreign bodies with manual digital extraction. ANESTHESIA: General. OPERATIVE FINDINGS: Two packages of antacid candy in the rectal vault. DESCRIPTION OF PROCEDURE: After the patient was placed under general endotracheal anesthesia, the patient was placed in stirrups and the bed elevated doing a digital manual exam with Surgilube. I carefully was able to digitally dilate the anal vault and entered into the rectal vault, which was full of soft stool and I was able to feel and extracted out with digital extraction. Two modest sized foreign bodies of wrapped antacid tablets in packages and repeat digital exam was just formed stool. No blood loss was obtained. The patient then was taken off general anesthesia and returned to recovery room in stable condition. By: 1323 133Cesar Ortiz MD /braxton
[~2020-03-20 14:56] MED LIST changes: +CARAFATE1 GM/10 ML PO; +PROTONIX40 M2 PO
[2020-03-20 15:00] VITALS: BP 132/92
[2020-03-20 15:37] LABS: ABSOLUTE LYMPHOCYTES 0.7 thou/uL (0.8-5.3); ABSOLUTE MONOCYTES 0.4 thou/uL (0.0-1.2); ABSOLUTE NEUTROPHILS 3.2 thou/uL (1.6-8.1); BASOPHILS 0.7 %; EOSINOPHILS 0.8 %; HEMATOCRIT 36.8 % (42.0-52.0); HEMOGLOBIN 12.5 gm/dL (14.0-18.0); MCHC 33.9 g/dL (28.0-37.0); MCV 94.4 fL (80.0-100.0); MONOCYTES 9.2 %; MPV 10.2 fl. (7.2-11.1); NUCLEATED RBCS 0 /100WBC; PLATELET COUNT* 138 thou/uL (150-400); POLYS 74.3 %; RBC 3.89 mil/uL (4.50-6.00); RDW-CV 14.1 % (10.5-14.5); WBC 4.4 thou/uL (4.0-11.0)
[2020-03-20 15:53] LABS: CALCIUM 8.6 mg/dL (8.5-10.1); CREATININE 1.1 mg/dL (0.6-1.3); POTASSIUM 3.4 mmol/L (3.5-5.1)
[2020-03-20 15:57] LABS: ALBUMIN 3.7 g/dL (3.4-5.0); TOTAL BILIRUBIN 0.5 mg/dL (<0.1-1.0); TOTAL PROTEIN 6.9 g/dL (6.4-8.2)
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
[2020-03-20 16:19] LABS: APTT 25.6 Seconds (25.0-31.3); PROTIME 10.3 Seconds (9.20-11.50)
[2020-03-20 17:49] LABS: URINE BILIRUBIN NEGATIVE (Negative); URINE BLOOD NEGATIVE (Negative); URINE CLARITY CLEAR; URINE COLOR YELLOW; URINE GLUCOSE-RANDOM NEGATIVE (Negative); URINE KETONES NEGATIVE (Negative); URINE LEUKOCYTES-REFLEX TRACE (Negative); URINE NITRITE-REFLEX NEGATIVE (Negative); URINE PROTEIN NEGATIVE (Negative); URINE SPECIFIC GRAVITY <= 1.005 (1.005-1.030); URINE UROBILINOGEN 0.2 E.U./dl (0.2-1.0)
[2020-03-20 18:00] LABS: URINE WBC-REFLEX 0-5 Rare /HPF (0-5)
[2020-03-20 18:01] LABS: CASTS None Seen /LPF (None Seen); CRYSTALS None Seen /LPF (None Seen); MUCUS None Seen strn/LPF (None Seen); SQUAMOUS NONE SEEN /LPF (0-3); URINE RBC None Seen /HPF (0-2)
[2020-03-20 18:25] VITALS: BP 123/70
[2020-03-20 18:38] LABS: AMP/METHAMP Negative (Negative); BARBITURATES Negative (Negative); BENZODIAZEPINES Negative (Negative); COCAINE Negative (Negative); METHADONE Negative (Negative); OPIATES Negative (Negative); PCP Negative (Negative); THC Negative (Negative)
[2020-03-20 18:45] VITALS: BP 119/74
--- NOTE | 2020-03-20 18:45 | NUR ---
PATIENT ARRIVED FROM ER AT THIS TIME. PATIENT SETTELD TO ROOM. HISTORY AND VITALS COMPLETED AND DOCUMENTED. PATIENT HAS COMPLAINTS OF ABDOMINAL PAIN. DR MCKINNEY NOTIFIED OF PAIN AND ORDERS RECEIVED. PATIENT GIVEN CLEAR LIQUIDS. PATIENT DENIES ANY FURTHER NEEDS AT THIS TIME. CALL LIGHT WITHIN REACH.
[2020-03-20 21:00] VITALS: BP 113/61
[2020-03-21 00:11] VITALS: BP 104/46
[2020-03-21 07:20] VITALS: BP 112/62
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
[2020-03-21 09:09] LABS: ABSOLUTE EOSINOPHILS 0.1 thou/uL (0.0-0.7); ABSOLUTE LYMPHOCYTES 1.2 thou/uL (0.8-5.3); ABSOLUTE MONOCYTES 0.3 thou/uL (0.0-1.2); ABSOLUTE NEUTROPHILS 1.5 thou/uL (1.6-8.1); BASOPHILS 0.9 %; EOSINOPHILS 1.6 %; HEMATOCRIT 35.1 % (42.0-52.0); HEMOGLOBIN 11.7 gm/dL (14.0-18.0); LYMPHOCYTES 37.7 %; MCH 31.4 pg (26.0-34.0); MCHC 33.2 g/dL (28.0-37.0); MCV 94.7 fL (80.0-100.0); MONOCYTES 11.2 %; MPV 10.3 fl. (7.2-11.1); NUCLEATED RBCS 0 /100WBC; PLATELET COUNT* 129 thou/uL (150-400); POLYS 48.6 %; RBC 3.71 mil/uL (4.50-6.00); RDW-CV 14.5 % (10.5-14.5); WBC 3.1 thou/uL (4.0-11.0)
[2020-03-21 09:17] LABS: ALBUMIN 3.4 g/dL (3.4-5.0); CREATININE 1.1 mg/dL (0.6-1.3); POTASSIUM 3.9 mmol/L (3.5-5.1); TOTAL BILIRUBIN 0.5 mg/dL (<0.1-1.0); TOTAL PROTEIN 6.4 g/dL (6.4-8.2)
[2020-03-21 12:10] VITALS: BP 112/62
--- NOTE | 2020-03-21 13:12 | NUR ---
Pt is A&O. Resides at home with a friend. Independent. No DME. No hx of HH or SNF. Pt to have a Laparotomy today and GI consult. Pt does not have a PCP, declined CM assisting with scheduling a PCP appt. Pt to dc later today, no needs.
--- NOTE | 2020-03-21 14:27 | NUR ---
PT RETURNED FROM PACU, PT ALERT AND ORIENTED. PT RESTING IN BED.
[2020-03-21 16:00] VITALS: BP 129/81
--- NOTE | 2020-03-21 17:28 | NUR ---
PT GIVEN DISCHARGE INFORMATION, IV REMOVED. PT REFUSED IBUPROFEN FOR PAIN. CAB VOUCHER CALLED. PT GIVEN DISCHARGE INFORMATION. FALL RISK PRECAUTIONS IN PLACE. HOURLY ROUNDING COMPLETED. PT LEFT VIA WHEELCHAIR WITH NURSING STAFF TO HOME.
== END 2020-03-21 17:59 | disposition home or self-care (01) ==
LOC: M.ERS 14:56 → M.TBA-ER 17:14 → M.ORTHSURG 19:03
PROVIDERS: Nurse Practitioner Family; ADMIT Internal Medicine; ATTEND Internal Medicine
DX: T18.5XXA Foreign body in anus and rectum, initial encounter (principal); R11.2 Nausea with vomiting, unspecified; E86.0 Dehydration; R10.9 Unspecified abdominal pain; Z79.899 Other long term (current) drug therapy; Z20.828 Contact with and (suspected) exposure to other viral communicable diseases; X58.XXXA Exposure to other specified factors, initial encounter; Y93.89 Activity, other specified; Y92.89 Other specified places as the place of occurrence of the external cause

== ENCOUNTER 2020-03-23 18:28 | Observation (INO) | payer MEDICAID ==
[~2020-03-23] VITALS: Ht 188 cm; Wt 90.7 kg
--- NOTE | ~2020-03-23 | OP ---
[address] [address] OPERATIVE REPORT Name: JOHNNY GREENWOOD Room: [address] Javier Garvin#: [id number] Admission: 03/23/20 Attend Phys: Luis Miguel Ga MD Discharge: 03/24/20 Date of : 82 Report #: [id number] THIS REPORT FOR: //name// cc: MOMO Anguiano family physician/PCP MOMO Anguiano family physician/PCP ~ CC: [facility] physician/PCP Luis Miguel Ga DATE OF SERVICE: 03/23/2020 PREOPERATIVE DIAGNOSIS: Foreign body in rectum. POSTOPERATIVE DIAGNOSIS: Foreign body in rectum. OPERATIVE PROCEDURE DONE: Evaluation under anesthesia and removal of rectal foreign body. OPERATING SURGEON: Luis Miguel Ga MD INDICATIONS FOR THE PROCEDURE: The patient is a young male who presents with episodes of recurrent admissions for a rectal foreign body. The patient states he had placed battery in his rectum; however, he often places ____ in his rectum. The patient was advised evaluation under anesthesia and removal. DESCRIPTION OF PROCEDURE: After explaining to the patient in detail and informed consent was obtained, the patient was identified in the preoperative holding area. The patient was transferred to the operating room and was placed in supine position initially. After induction of anesthesia, the patient was placed in lithotomy position. The digital examination was performed and I was able to feel the foreign body. Two ____ were then removed from the rectum. The patient was stable at the end of the procedure. ESTIMATED BLOOD LOSS: None. COMPLICATIONS: None. ANESTHESIA: General anesthesia. By: 1943 2035Sigi Miguel Ga MD /braxton
[2020-03-23 18:30] VITALS: BP 133/88
[2020-03-23 18:45] LABS: ABSOLUTE EOSINOPHILS 0.1 thou/uL (0.0-0.7); ABSOLUTE LYMPHOCYTES 0.9 thou/uL (0.8-5.3); ABSOLUTE MONOCYTES 0.5 thou/uL (0.0-1.2); ABSOLUTE NEUTROPHILS 3.1 thou/uL (1.6-8.1); BASOPHILS 0.9 %; EOSINOPHILS 1.6 %; HEMATOCRIT 35.1 % (42.0-52.0); HEMOGLOBIN 11.9 gm/dL (14.0-18.0); LYMPHOCYTES 20.2 %; MCH 32.2 pg (26.0-34.0); MCV 94.8 fL (80.0-100.0); MONOCYTES 10.1 %; MPV 10.1 fl. (7.2-11.1); NUCLEATED RBCS 0 /100WBC; PLATELET COUNT* 145 thou/uL (150-400); POLYS 67.2 %; RDW-CV 14.5 % (10.5-14.5); WBC 4.6 thou/uL (4.0-11.0)
[2020-03-23 18:53] LABS: CALCIUM 8.1 mg/dL (8.5-10.1); CREATININE 1.1 mg/dL (0.6-1.3); POTASSIUM 4.2 mmol/L (3.5-5.1)
[2020-03-23 18:53] LABS: URINE BILIRUBIN NEGATIVE (Negative); URINE BLOOD NEGATIVE (Negative); URINE CLARITY CLEAR; URINE COLOR YELLOW; URINE GLUCOSE-RANDOM NEGATIVE (Negative); URINE KETONES NEGATIVE (Negative); URINE LEUKOCYTES-REFLEX NEGATIVE (Negative); URINE NITRITE-REFLEX NEGATIVE (Negative); URINE PROTEIN NEGATIVE (Negative); URINE SPECIFIC GRAVITY 1.025 (1.005-1.030); URINE UROBILINOGEN 0.2 E.U./dl (0.2-1.0)
[2020-03-23 18:58] LABS: ALBUMIN 3.1 g/dL (3.4-5.0); TOTAL BILIRUBIN 0.2 mg/dL (<0.1-1.0); TOTAL PROTEIN 6.2 g/dL (6.4-8.2)
[2020-03-23 21:43] VITALS: BP 121/76
[2020-03-23 23:17] VITALS: BP 121/76
[2020-03-24] VITALS: BP 149/99
[2020-03-24 14:30] VITALS: BP 121/76
== END 2020-03-24 14:15 | disposition home or self-care (01) ==
LOC: M.SUR 18:28 → M.ERS 18:28 → M.ORTHSURG 23:29
PROVIDERS: Physician Assistant; ADMIT Surgery; ATTEND Surgery
DX: T18.5XXA Foreign body in anus and rectum, initial encounter (principal); X58.XXXA Exposure to other specified factors, initial encounter; Y93.89 Activity, other specified; Y92.89 Other specified places as the place of occurrence of the external cause

== ENCOUNTER 2020-03-30 05:22 | Inpatient (IN) | payer MEDICAID ==
[~2020-03-30] VITALS: Ht 188 cm; Wt 90.7 kg
--- NOTE | ~2020-03-30 | OP ---
[facility] [address] [place] [address] OPERATIVE REPORT Name: JOHNNY GREENWOOD TRACEY Room: [address] IN M.R.#: [id number] Admission: 03/30/20 Attend Phys: Bandar Urbina Discharge: Date of : 82 Report #: [id number] THIS REPORT FOR: //name// cc: MOMO - Annmarie family physician/PCP MOMO - Annmarie family physician/PCP ~ CC: [facility] physician/PCP Bandar Urbina DATE OF SERVICE: 03/30/2020 PREOPERATIVE DIAGNOSIS: Rectal foreign body. POSTOPERATIVE DIAGNOSIS: Rectal foreign body. OPERATION: Removal of rectal foreign body. SURGEON: Bandar Urbina MD ANESTHESIA: General. ESTIMATED BLOOD LOSS: None. SPECIMEN: None. DESCRIPTION OF PROCEDURE: After informed consent was obtained, the patient was brought to the operating room and placed supine. SCDs were placed and working and general anesthesia was induced. The patient was placed in the lithotomy position. I was able to reach into his rectum and pull out 2 rolls of Rolaids. COMPLICATIONS: None. DISPOSITION: The patient was taken to recovery in satisfactory condition. By: 0759 0836Bandar Urbina MD /nt
[2020-03-30 05:36] VITALS: BP 132/94
[2020-03-30 07:03] LABS: ABSOLUTE EOSINOPHILS 0.1 thou/uL (0.0-0.7); ABSOLUTE LYMPHOCYTES 0.9 thou/uL (0.8-5.3); ABSOLUTE MONOCYTES 0.5 thou/uL (0.0-1.2); ABSOLUTE NEUTROPHILS 1.6 thou/uL (1.6-8.1); BASOPHILS 0.8 %; EOSINOPHILS 2.9 %; HEMATOCRIT 31.8 % (42.0-52.0); HEMOGLOBIN 10.7 gm/dL (14.0-18.0); LYMPHOCYTES 29.6 %; MCH 31.8 pg (26.0-34.0); MCHC 33.8 g/dL (28.0-37.0); MCV 94.2 fL (80.0-100.0); MONOCYTES 14.4 %; MPV 9.5 fl. (7.2-11.1); NUCLEATED RBCS 0 /100WBC; PLATELET COUNT* 126 thou/uL (150-400); POLYS 52.3 %; RBC 3.37 mil/uL (4.50-6.00); RDW-CV 14.2 % (10.5-14.5); WBC 3.2 thou/uL (4.0-11.0)
[2020-03-30 07:11] LABS: POTASSIUM 3.6 mmol/L (3.5-5.1)
[2020-03-30 07:16] LABS: ALBUMIN 3.3 g/dL (3.4-5.0); TOTAL BILIRUBIN 0.1 mg/dL (<0.1-1.0); TOTAL PROTEIN 6.3 g/dL (6.4-8.2)
[2020-03-30 08:01] LABS: URINE BILIRUBIN NEGATIVE (Negative); URINE BLOOD NEGATIVE (Negative); URINE CLARITY CLEAR; URINE COLOR YELLOW; URINE GLUCOSE-RANDOM NEGATIVE (Negative); URINE KETONES NEGATIVE (Negative); URINE LEUKOCYTES-REFLEX NEGATIVE (Negative); URINE NITRITE-REFLEX NEGATIVE (Negative); URINE PROTEIN NEGATIVE (Negative); URINE SPECIFIC GRAVITY <= 1.005 (1.005-1.030); URINE UROBILINOGEN 0.2 E.U./dl (0.2-1.0)
[2020-03-30 08:08] LABS: AMP/METHAMP Negative (Negative); BARBITURATES Negative (Negative); BENZODIAZEPINES Negative (Negative); COCAINE Negative (Negative); METHADONE Negative (Negative); OPIATES Negative (Negative); PCP Negative (Negative); THC Negative (Negative)
[2020-03-30 08:16] VITALS: BP 128/86
[2020-03-30 15:30] VITALS: BP 125/75
[2020-03-30 20:00] VITALS: BP 124/76
[2020-03-30 23:55] VITALS: BP 136/77
[2020-03-31] VITALS (7 sets, daily range): BP systolic 124–154; BP diastolic 68–102
== END 2020-03-31 18:36 | disposition home or self-care (01) | DRG 395 ==
LOC: M.ERS 05:22 → M.TBA-ER 06:25 → M.ORTHSURG 15:42
PROVIDERS: Family Medicine; ADMIT Surgery; ATTEND Surgery
PROC: 0DCP7ZZ Extirpation of Matter from Rectum, Via Natural or Artificial Opening (ICD-10-PCS; principal; 2020-03-30)
DX: T18.5XXA Foreign body in anus and rectum, initial encounter (principal); X58.XXXA Exposure to other specified factors, initial encounter; G89.29 Other chronic pain; M54.9 Dorsalgia, unspecified; Z20.828 Contact with and (suspected) exposure to other viral communicable diseases; G40.409 Other generalized epilepsy and epileptic syndromes, not intractable, without status epilepticus; Z88.8 Allergy status to other drugs, medicaments and biological substances; Z88.5 Allergy status to narcotic agent

== ENCOUNTER 2020-04-09 19:51 | Emergency (ER) | payer MEDICAID ==
[~2020-04-09] VITALS: Ht 188 cm; Wt 90.7 kg
[2020-04-09 23:55] LABS: HEMATOCRIT 31.5 % (42.0-52.0); HEMOGLOBIN 10.5 gm/dL (14.0-18.0); MCH 31.4 pg (26.0-34.0); MCHC 33.3 g/dL (28.0-37.0); MCV 94.3 fL (80.0-100.0); MPV 9.7 fl. (7.2-11.1); RBC 3.34 mil/uL (4.50-6.00); RDW-CV 14.3 % (10.5-14.5); WBC 4.5 thou/uL (4.0-11.0)
[2020-04-10 00:09] LABS: CALCIUM 8.7 mg/dL (8.5-10.1); CREATININE 1.2 mg/dL (0.6-1.3); POTASSIUM 3.6 mmol/L (3.5-5.1)
[2020-04-10 00:13] LABS: ALBUMIN 3.4 g/dL (3.4-5.0); TOTAL BILIRUBIN 0.2 mg/dL (<0.1-1.0); TOTAL PROTEIN 6.7 g/dL (6.4-8.2)
[2020-04-10] MEDS ORDERED: ZOFRAN ODT4 MG PO (00:35)
[2020-04-10] MEDS ORDERED: CARAFATE1 GM PO (00:35)
[2020-04-10] MEDS ORDERED: BENTYL 20 MG TA20 M1 PO (00:35)
[2020-04-10 00:41] VITALS: BP 140/89
== END 2020-04-10 00:42 | disposition home or self-care (01) ==
LOC: M.ERS 19:51
PROVIDERS: Emergency Medicine Emergency Medical Services
DX: R10.84 Generalized abdominal pain (principal); R11.10 Vomiting, unspecified; K21.9 Gastro-esophageal reflux disease without esophagitis; Z88.5 Allergy status to narcotic agent; Z88.8 Allergy status to other drugs, medicaments and biological substances; Z90.49 Acquired absence of other specified parts of digestive tract

== ENCOUNTER 2020-04-10 04:26 | Observation (INO) | payer MEDICAID ==
[~2020-04-10] VITALS: Ht 188 cm; Wt 90.7 kg
[2020-04-10 04:35] VITALS: BP 143/104
[2020-04-10 04:52] LABS: URINE BILIRUBIN NEGATIVE (Negative); URINE BLOOD 1+ (Negative); URINE CLARITY CLEAR; URINE COLOR YELLOW; URINE GLUCOSE-RANDOM NEGATIVE (Negative); URINE KETONES NEGATIVE (Negative); URINE LEUKOCYTES-REFLEX TRACE (Negative); URINE NITRITE-REFLEX NEGATIVE (Negative); URINE PROTEIN TRACE (Negative); URINE UROBILINOGEN 0.2 E.U./dl (0.2-1.0)
[2020-04-10 05:14] LABS: ABSOLUTE EOSINOPHILS 0.1 thou/uL (0.0-0.7); ABSOLUTE MONOCYTES 0.7 thou/uL (0.0-1.2); ABSOLUTE NEUTROPHILS 3.9 thou/uL (1.6-8.1); BASOPHILS 0.5 %; EOSINOPHILS 1.6 %; LYMPHOCYTES 17.9 %; MCHC 32.5 g/dL (28.0-37.0); MCV 98.3 fL (80.0-100.0); MONOCYTES 12.2 %; MPV 10.1 fl. (7.2-11.1); NUCLEATED RBCS 0 /100WBC; PLATELET COUNT* 150 thou/uL (150-400); POLYS 67.8 %; RBC 3.76 mil/uL (4.50-6.00); RDW-CV 15.1 % (10.5-14.5); WBC 5.8 thou/uL (4.0-11.0)
[2020-04-10 05:34] LABS: PROTIME 9.7 Seconds (9.20-11.50)
[2020-04-10 05:37] LABS: INR 0.9
[2020-04-10 05:39] LABS: CALCIUM 8.7 mg/dL (8.5-10.1); CREATININE 1.2 mg/dL (0.6-1.3); POTASSIUM 4.4 mmol/L (3.5-5.1)
[2020-04-10 05:43] LABS: BACTERIA-REFLEX 1-9 Few /HPF (None Seen); CASTS None Seen /LPF (None Seen); CRYSTALS None Seen /LPF (None Seen); MUCUS 0-3 Light strn/LPF (None Seen); SQUAMOUS 0-3 Few /LPF (0-3); URINE WBC-REFLEX 0-5 Rare /HPF (0-5)
[2020-04-10 05:44] LABS: ALBUMIN 3.8 g/dL (3.4-5.0); TOTAL BILIRUBIN 0.3 mg/dL (<0.1-1.0)
[2020-04-10 08:26] LABS: AMP/METHAMP Negative (Negative); BARBITURATES Negative (Negative); BENZODIAZEPINES Negative (Negative); COCAINE Negative (Negative); METHADONE Negative (Negative); OPIATES Negative (Negative); PCP Negative (Negative); THC Negative (Negative)
[2020-04-10 09:23] LABS: HEMATOCRIT 29.7 % (42.0-52.0)
[2020-04-10 09:29] LABS: HEMOGLOBIN 9.9 gm/dL (14.0-18.0)
[2020-04-10 10:13] VITALS: BP 129/69
--- NOTE | 2020-04-10 10:52 | EKG ---
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1980 Requested By: Husam Begum Order Number: [id number] MD: Anson Toney Measurements Intervals [place] Rate: 90 P: 42 TN: 175 QRS: -17 QRSD: 97 T: 17 QT: 372 QTc: 455 Interpretive Statements Sinus rhythm Borderline left axis deviation ST elev, probable normal early repol pattern Baseline wander in lead(s) V2 Compared to ECG 05/23/2019 18:31:55 Atrial premature complex(es) no longer present ST (T wave) deviation still present rate has increased Electronically Signed On 04-10-2020 10:52:27 MESS COOK by Anson Toney [email or web address] <ELECTRONICALLY SIGNED> By: Anson Toney MD, [facility] 04/10/20 1052 7 7 Anson Toney MD, [facility] /EPI
[2020-04-10 12:00] VITALS: BP 133/63
[2020-04-10 14:15] LABS: HEMATOCRIT 29.6 % (42.0-52.0)
[2020-04-10 16:00] VITALS: BP 133/63
[2020-04-10 16:18] VITALS: BP 128/84
[2020-04-10 20:34] VITALS: BP 141/91
[2020-04-11 00:56] VITALS: BP 124/56
[2020-04-11 04:18] VITALS: BP 122/74
[2020-04-11 04:45] LABS: HEMATOCRIT 30.4 % (42.0-52.0); HEMOGLOBIN 10.3 gm/dL (14.0-18.0); MCH 31.9 pg (26.0-34.0); MCV 93.8 fL (80.0-100.0); MPV 10.3 fl. (7.2-11.1); RBC 3.24 mil/uL (4.50-6.00); RDW-CV 14.2 % (10.5-14.5); WBC 2.8 thou/uL (4.0-11.0)
[2020-04-11 04:59] LABS: CALCIUM 8.1 mg/dL (8.5-10.1); CREATININE 0.9 mg/dL (0.6-1.3); MAGNESIUM 2.1 mg/dL (1.8-2.4); POTASSIUM 3.6 mmol/L (3.5-5.1)
[2020-04-11 08:00] VITALS: BP 139/86
[2020-04-11 08:36] VITALS: BP 139/86
[2020-04-11 12:32] VITALS: BP 128/79
[2020-04-11 15:20] VITALS: BP 128/79
--- NOTE | 2020-04-15 13:09 | PATH ---
[address] [address] PATHOLOGY RPT PROCEDURE Name: JOHNNY GREENWOOD Room: [address] Javier Garvin#: [id number] Admission: 04/10/20 Date of : 82 Discharge: 04/11/20 Report #: [id number] Path Case #: [id number] LCA Accession Number: [id number] . 01 Material submitted: . stomach - GASTRIC BIOPSIES FOR H. PYLORI . 01 Clinical history: . HEMATEMESIS, SYNCOPE . 02 Diagnosis: Stomach, endoscopic biopsy: - Gastric antral mucosa with features of reactive gastropathy. - Negative for intestinal metaplasia, dysplasia, and malignancy. - Negative for Helicobacter pylori. . (MLK:mmcasey; 04/14/2020) QLM 04/15/2020 1222 Local . 02 Electronically signed: . Ananda Sanchez MD, Pathologist NPI- [id number] . 01 Gross description: . Received in formalin labeled "Johnny Greenwood, gastric biopsies for H. pylori" is a fragment of moya-brown soft tissue measuring 0.5 x 0.3 x 0.1 cm. The specimen is submitted entirely in A1. ([facility]; 04/12/2020) [facility] 04/12/2020 1050 Local . 02 Microscopic: . Immunohistochemical stain results (properly-controlled): . Helicobacter pylori (A1)- Negative for organisms . (MLK:mml; 04/14/2020) . 02 Pathologist provided ICD-10: K92.0, R55 . 02 CPT . 040767, V99922 Specimen Comment: A courtesy copy of this report has been sent to [phone] Specimen Comment: [phone] Specimen Comment: Report sent to / DR MONTAÑO Performed at: [address], [place], [place] [address] [place] [address] PATHOLOGY RPT PROCEDURE Name: JOHNNY GREENWOOD Room: [address] Javier Garvin#: [id number] Admission: 04/10/20 Date of : 82 Discharge: 04/11/20 Report #: [id number] Path Case #: [id number] MD Guy Bourne MD Phone: [phone] Performed at: 02 [facility] [address], [place], [place] [id number] MD Spencer Farrar MD Phone: [phone]
== END 2020-04-11 17:46 | disposition home or self-care (01) ==
LOC: M.ERS 04:26 → M.TBA-ER 05:38 → M.2W 16:11
PROVIDERS: Emergency Medicine Emergency Medical Services; ADMIT Internal Medicine; ATTEND Internal Medicine
DX: K92.0 Hematemesis (principal); G40.909 Epilepsy, unspecified, not intractable, without status epilepticus; G89.29 Other chronic pain

== ENCOUNTER 2020-04-15 23:57 | Emergency (ER) | payer MEDICAID ==
[~2020-04-15] VITALS: Ht 188 cm; Wt 90.7 kg
[2020-04-16 02:05] VITALS: BP 123/79
== END 2020-04-16 02:05 | disposition home or self-care (01) ==
LOC: M.ERS 23:57
DX: R10.84 Generalized abdominal pain (principal); G89.29 Other chronic pain; R11.2 Nausea with vomiting, unspecified; Z88.5 Allergy status to narcotic agent; Z88.8 Allergy status to other drugs, medicaments and biological substances; Z95.5 Presence of coronary angioplasty implant and graft; Z90.49 Acquired absence of other specified parts of digestive tract

== ENCOUNTER 2020-04-17 19:18 | Emergency (ER) | payer MEDICAID ==
[~2020-04-17] VITALS: Ht 182.9 cm; Wt 83.9 kg
[2020-04-17 20:19] VITALS: BP 111/69
== END 2020-04-17 20:20 | disposition home or self-care (01) ==
LOC: M.ERS 19:18
DX: T18.5XXA Foreign body in anus and rectum, initial encounter (principal); Z79.899 Other long term (current) drug therapy; Z88.6 Allergy status to analgesic agent; Z88.8 Allergy status to other drugs, medicaments and biological substances; X58.XXXA Exposure to other specified factors, initial encounter; Y93.89 Activity, other specified; Y92.89 Other specified places as the place of occurrence of the external cause; Y99.8 Other external cause status

== ENCOUNTER 2020-05-02 16:02 | Emergency (ER) | payer MEDICAID ==
[~2020-05-02] VITALS: Ht 188 cm; Wt 90.7 kg
[2020-05-02 16:17] VITALS: BP 98/63
== END 2020-05-02 16:39 | disposition left against medical advice (07) ==
LOC: M.ERS 16:02
DX: R10.10 Upper abdominal pain, unspecified (principal); K92.0 Hematemesis; Z53.21 Procedure and treatment not carried out due to patient leaving prior to being seen by health care provider

== ENCOUNTER 2020-06-07 17:00 | Emergency (ER) | payer MEDICAID ==
[~2020-06-07] VITALS: Ht 188 cm; Wt 90.7 kg
[2020-06-07 17:45] LABS: ABSOLUTE LYMPHOCYTES 0.7 thou/uL (0.8-5.3); ABSOLUTE MONOCYTES 0.3 thou/uL (0.0-1.2); ABSOLUTE NEUTROPHILS 1.5 thou/uL (1.6-8.1); BASOPHILS 0.2 %; EOSINOPHILS 0.7 %; HEMATOCRIT 33.5 % (42.0-52.0); LYMPHOCYTES 26.2 %; MCHC 32.8 g/dL (28.0-37.0); MCV 88.4 fL (80.0-100.0); MONOCYTES 12.2 %; MPV 10.2 fl. (7.2-11.1); NUCLEATED RBCS 0 /100WBC; PLATELET COUNT* 185 thou/uL (150-400); POLYS 60.7 %; RBC 3.79 mil/uL (4.50-6.00); RDW-CV 14.5 % (10.5-14.5); WBC 2.5 thou/uL (4.0-11.0)
[2020-06-07 17:52] LABS: CALCIUM 8.7 mg/dL (8.5-10.1); CREATININE 1.3 mg/dL (0.6-1.3); POTASSIUM 3.7 mmol/L (3.5-5.1)
[2020-06-07 17:56] LABS: ALBUMIN 3.8 g/dL (3.4-5.0); TOTAL BILIRUBIN 0.2 mg/dL (<0.1-1.0); TOTAL PROTEIN 7.3 g/dL (6.4-8.2)
[2020-06-07] MEDS ORDERED: ZOFRAN ODT4 MG DISSOLVE (18:00)
[2020-06-07] MEDS ORDERED: PROTONIX40 M2 PO (18:00)
[2020-06-07] MEDS ORDERED: CARAFATE1 GM PO (18:00)
[2020-06-07 18:13] VITALS: BP 167/98
== END 2020-06-07 18:13 | disposition home or self-care (01) ==
LOC: M.ERS 17:00
PROVIDERS: Emergency Medicine Emergency Medical Services
DX: R11.10 Vomiting, unspecified (principal); R10.84 Generalized abdominal pain; G89.29 Other chronic pain; Z95.5 Presence of coronary angioplasty implant and graft; Z90.49 Acquired absence of other specified parts of digestive tract; Z88.6 Allergy status to analgesic agent; Z88.5 Allergy status to narcotic agent; Z88.8 Allergy status to other drugs, medicaments and biological substances

== ENCOUNTER 2020-06-27 13:41 | Emergency (ER) | payer MEDICAID ==
[~2020-06-27] VITALS: Ht 188 cm; Wt 90.7 kg
[~2020-06-27 13:41] MED LIST changes: +ZOFRAN ODT4 MG DISSOLVE
[2020-06-27 13:50] VITALS: BP 128/81
== END 2020-06-27 14:00 | disposition home or self-care (01) ==
LOC: M.ERS 13:41
DX: G89.29 Other chronic pain (principal); R10.84 Generalized abdominal pain; Z76.5 Malingerer [conscious simulation]; Z79.899 Other long term (current) drug therapy; Z88.5 Allergy status to narcotic agent; Z88.8 Allergy status to other drugs, medicaments and biological substances

== ENCOUNTER 2020-07-04 12:45 | Emergency (ER) | payer MEDICAID ==
[~2020-07-04] VITALS: Ht 188 cm; Wt 90.7 kg
[2020-07-04 13:27] LABS: URINE BILIRUBIN NEGATIVE (Negative); URINE BLOOD NEGATIVE (Negative); URINE CLARITY CLEAR; URINE COLOR YELLOW; URINE GLUCOSE-RANDOM NEGATIVE (Negative); URINE KETONES NEGATIVE (Negative); URINE LEUKOCYTES-REFLEX NEGATIVE (Negative); URINE NITRITE-REFLEX NEGATIVE (Negative); URINE PROTEIN NEGATIVE (Negative); URINE UROBILINOGEN 0.2 E.U./dl (0.2-1.0)
[2020-07-04 13:30] LABS: LYMPHOCYTES 25.5 %
[2020-07-04 13:32] LABS: ABSOLUTE BASOPHILS 0.1 thou/uL (0.0-0.2); ABSOLUTE EOSINOPHILS 0.1 thou/uL (0.0-0.7); ABSOLUTE LYMPHOCYTES 1.1 thou/uL (0.8-5.3); ABSOLUTE MONOCYTES 0.6 thou/uL (0.0-1.2); ABSOLUTE NEUTROPHILS 2.6 thou/uL (1.6-8.1); BASOPHILS 1.2 %; EOSINOPHILS 1.5 %; HEMATOCRIT 30.4 % (42.0-52.0); MCH 28.5 pg (26.0-34.0); MCHC 32.8 g/dL (28.0-37.0); MCV 86.8 fL (80.0-100.0); MONOCYTES 13.9 %; MPV 10.5 fl. (7.2-11.1); NUCLEATED RBCS 0 /100WBC; PLATELET COUNT* 117 thou/uL (150-400); POLYS 57.9 %; RDW-CV 15.3 % (10.5-14.5); WBC 4.4 thou/uL (4.0-11.0)
[2020-07-04 13:55] LABS: CALCIUM 8.6 mg/dL (8.5-10.1); CREATININE 1.2 mg/dL (0.6-1.3); POTASSIUM 4.1 mmol/L (3.5-5.1)
[2020-07-04 13:58] LABS: TOTAL BILIRUBIN 0.1 mg/dL (<0.1-1.0); TOTAL PROTEIN 6.8 g/dL (6.4-8.2)
[2020-07-04 14:07] VITALS: BP 138/88
== END 2020-07-04 14:08 | disposition home or self-care (01) ==
LOC: M.ERS 12:45
PROVIDERS: Physician Assistant
DX: R10.84 Generalized abdominal pain (principal); G89.29 Other chronic pain; Z88.6 Allergy status to analgesic agent; Z88.5 Allergy status to narcotic agent; Z88.8 Allergy status to other drugs, medicaments and biological substances; Z95.5 Presence of coronary angioplasty implant and graft

== ENCOUNTER 2020-07-18 21:12 | Emergency (ER) | payer MEDICAID ==
[~2020-07-18] VITALS: Ht 182.9 cm; Wt 90.7 kg
[2020-07-18 21:40] LABS: AMP/METHAMP Negative (Negative); BARBITURATES Negative (Negative); BENZODIAZEPINES Negative (Negative); COCAINE Negative (Negative); METHADONE Negative (Negative); OPIATES Negative (Negative); PCP Negative (Negative); THC Negative (Negative)
[2020-07-18 21:40] LABS: ABSOLUTE LYMPHOCYTES 0.8 thou/uL (0.8-5.3); ABSOLUTE MONOCYTES 0.3 thou/uL (0.0-1.2); ABSOLUTE NEUTROPHILS 2.4 thou/uL (1.6-8.1); BASOPHILS 1.2 %; EOSINOPHILS 1.1 %; HEMOGLOBIN 10.9 gm/dL (14.0-18.0); LYMPHOCYTES 22.8 %; MCH 28.3 pg (26.0-34.0); MCHC 33.1 g/dL (28.0-37.0); MCV 85.4 fL (80.0-100.0); MONOCYTES 7.1 %; MPV 9.8 fl. (7.2-11.1); NUCLEATED RBCS 0 /100WBC; PLATELET COUNT* 184 thou/uL (150-400); POLYS 67.8 %; RBC 3.86 mil/uL (4.50-6.00); RDW-CV 15.5 % (10.5-14.5); WBC 3.6 thou/uL (4.0-11.0)
[2020-07-18 21:47] LABS: CALCIUM 7.8 mg/dL (8.5-10.1); CREATININE 1.4 mg/dL (0.6-1.3); POTASSIUM 3.6 mmol/L (3.5-5.1)
[2020-07-18 21:51] LABS: TOTAL BILIRUBIN 0.2 mg/dL (<0.1-1.0); TOTAL PROTEIN 7.2 g/dL (6.4-8.2)
[2020-07-18] MEDS ORDERED: ZOFRAN ODT4 MG PO (22:32)
[2020-07-18] MEDS ORDERED: PROTONIX40 MG PO (22:32)
[2020-07-18 22:51] VITALS: BP 115/64
== END 2020-07-18 22:52 | disposition home or self-care (01) ==
LOC: M.ERS 21:12
PROVIDERS: Emergency Medicine
DX: F10.10 Alcohol abuse, uncomplicated (principal); K29.70 Gastritis, unspecified, without bleeding; G89.29 Other chronic pain; Z88.6 Allergy status to analgesic agent; Z88.5 Allergy status to narcotic agent; Z88.8 Allergy status to other drugs, medicaments and biological substances; Z79.899 Other long term (current) drug therapy; Z90.49 Acquired absence of other specified parts of digestive tract; Y90.9 Presence of alcohol in blood, level not specified

== ENCOUNTER 2020-07-21 14:32 | Emergency (ER) | payer MEDICAID ==
[~2020-07-21] VITALS: Ht 188 cm; Wt 90.7 kg
[2020-07-21 15:02] LABS: ABSOLUTE LYMPHOCYTES 0.7 thou/uL (0.8-5.3); ABSOLUTE MONOCYTES 0.6 thou/uL (0.0-1.2); ABSOLUTE NEUTROPHILS 4.2 thou/uL (1.6-8.1); BASOPHILS 0.9 %; EOSINOPHILS 0.8 %; HEMATOCRIT 35.7 % (42.0-52.0); HEMOGLOBIN 11.4 gm/dL (14.0-18.0); LYMPHOCYTES 12.8 %; MCH 27.5 pg (26.0-34.0); MCV 85.9 fL (80.0-100.0); MONOCYTES 10.6 %; MPV 9.3 fl. (7.2-11.1); NUCLEATED RBCS 0 /100WBC; PLATELET COUNT* 214 thou/uL (150-400); POLYS 74.9 %; RBC 4.15 mil/uL (4.50-6.00); RDW-CV 15.6 % (10.5-14.5); WBC 5.6 thou/uL (4.0-11.0)
[2020-07-21 15:11] LABS: CREATININE 1.2 mg/dL (0.6-1.3); POTASSIUM 3.9 mmol/L (3.5-5.1)
[2020-07-21 15:15] LABS: ALBUMIN 4.2 g/dL (3.4-5.0); TOTAL BILIRUBIN 0.3 mg/dL (<0.1-1.0); TOTAL PROTEIN 7.5 g/dL (6.4-8.2)
--- NOTE | 2020-07-21 15:52 | EKG ---
[place] [address] ELECTROCARDIOGRAM REPORT Name: KRYSTYNAJOHNNY TRACEY Room: [facility]#: [id number] Admission: 07/21/20 Attend Phys: Discharge: Date of : 82 Date of Service: 07/21/20 1505 Report #: [id number] THIS REPORT FOR: //name// [facility] ED Test Date: 2020-07-21 Test Time: 15:05:03 Pat Name: JOHNNY GREENWOOD Department: Room: Gender: Authorization Coordinator: [facility] : 1980 Requested By: Husam Begum Order Number: [id number] MD: Anson Toney Measurements Intervals [place] Rate: 76 P: 53 TX: 178 QRS: -17 QRSD: 110 T: 14 QT: 376 QTc: 423 Interpretive Statements Sinus rhythm Left ventricular hypertrophy Compared to ECG 04/10/2020 04:48:40 Left ventricular hypertrophy now present Electronically Signed On 07-21-2020 15:51:54 MEAT SLICER by Anson Toney [email or web address] <ELECTRONICALLY SIGNED> By: Anson Toney MD, [facility] 07/21/20 1551 1505 1505 Anson Toney MD, FAC /EPI
[2020-07-21] MEDS ORDERED: CARAFATE1 GM PO (16:41)
[2020-07-21 16:55] VITALS: BP 134/93
== END 2020-07-21 16:56 | disposition home or self-care (01) ==
LOC: M.ERS 14:32
PROVIDERS: Emergency Medicine Emergency Medical Services
DX: T18.5XXA Foreign body in anus and rectum, initial encounter (principal); X58.XXXA Exposure to other specified factors, initial encounter; Y93.89 Activity, other specified; Y92.89 Other specified places as the place of occurrence of the external cause; Y99.8 Other external cause status; R10.84 Generalized abdominal pain

== ENCOUNTER 2020-07-23 15:07 | Emergency (ER) | payer MEDICAID ==
[~2020-07-23] VITALS: Ht 188 cm; Wt 81.7 kg
== END 2020-07-23 15:18 | disposition home or self-care (01) ==
LOC: M.ERS 15:07
DX: Z53.21 Procedure and treatment not carried out due to patient leaving prior to being seen by health care provider (principal)

== ENCOUNTER 2020-07-31 16:13 | Emergency (ER) | payer MEDICAID ==
[~2020-07-31] VITALS: Ht 188 cm; Wt 90.7 kg
[2020-07-31 16:18] VITALS: BP 124/73
[2020-07-31 16:57] LABS: HEMATOCRIT 32.5 % (42.0-52.0); HEMOGLOBIN 10.6 gm/dL (14.0-18.0); MCH 27.9 pg (26.0-34.0); MCHC 32.7 g/dL (28.0-37.0); MCV 85.3 fL (80.0-100.0); MPV 9.6 fl. (7.2-11.1); RBC 3.81 mil/uL (4.50-6.00); RDW-CV 16.3 % (10.5-14.5); WBC 4.2 thou/uL (4.0-11.0)
[2020-07-31 17:05] LABS: CREATININE 1.2 mg/dL (0.6-1.3); POTASSIUM 4.1 mmol/L (3.5-5.1)
--- NOTE | 2020-08-01 09:29 | EKG ---
[place] [address] ELECTROCARDIOGRAM REPORT Name: JOHNNY GREENWOOD Room: [facility]#: [id number] Admission: 07/31/20 Attend Phys: Discharge: 07/31/20 Date of : 82 Date of Service: 07/31/2016[address] Report #: [id number] THIS REPORT FOR: //name// [facility] ED Test Date: 2020-07-31 Test Time: 16:51:41 Pat Name: JOHNNY GREENWOOD Department: Room: Gender: Neurology Director: MICHA : 1980 Requested By: Husam Begum Order Number: [id number] MD: Ender Fisher Measurements Intervals [place] Rate: 87 P: 46 PA: 181 QRS: -5 QRSD: 103 T: 44 QT: 363 QTc: 437 Interpretive Statements Sinus rhythm ST elev, probable normal early repol pattern Baseline wander in lead(s) II,III,aVR,aVL,aVF,V1,V2,V3,V4,V6 Compared to ECG 07/21/2020 15:05:03 ST (T wave) deviation now present Left ventricular hypertrophy no longer present Electronically Signed On 08-01-2020 9:29:15 MAMMOGRAPHY TECHNOLOGIST by Ender Fisher [email or web address] <ELECTRONICALLY SIGNED> By: Ender Fisher MD, [facility] 08/01/20 0929 50 50 Ender Fisher MD, [facility] /EPI
== END 2020-07-31 17:11 | disposition left against medical advice (07) ==
LOC: M.ERS 16:13
PROVIDERS: Emergency Medicine Emergency Medical Services
DX: R55 Syncope and collapse (principal); R07.89 Other chest pain; M54.5 Low back pain; R06.89 Other abnormalities of breathing; R09.89 Other specified symptoms and signs involving the circulatory and respiratory systems; Z53.29 Procedure and treatment not carried out because of patient's decision for other reasons; Z90.49 Acquired absence of other specified parts of digestive tract; Z79.899 Other long term (current) drug therapy; Z88.8 Allergy status to other drugs, medicaments and biological substances; Z88.5 Allergy status to narcotic agent; Z88.6 Allergy status to analgesic agent

== ENCOUNTER 2020-08-09 13:54 | Emergency (ER) | payer MEDICAID ==
[~2020-08-09] VITALS: Ht 188 cm; Wt 90.7 kg
[2020-08-09 13:55] VITALS: BP 115/76
== END 2020-08-10 12:22 | disposition home or self-care (01) ==
LOC: M.ERS 13:54
DX: Z53.21 Procedure and treatment not carried out due to patient leaving prior to being seen by health care provider (principal)

== ENCOUNTER 2020-08-10 12:15 | Emergency (ER) | payer MEDICAID ==
[~2020-08-10] VITALS: Ht 177.8 cm; Wt 77.1 kg
[2020-08-10 12:15] VITALS: BP 130/88
== END 2020-08-10 12:22 | disposition left against medical advice (07) ==
LOC: M.ERS 12:15
DX: K92.0 Hematemesis (principal); G89.29 Other chronic pain; Z88.5 Allergy status to narcotic agent; Z88.8 Allergy status to other drugs, medicaments and biological substances; Z95.5 Presence of coronary angioplasty implant and graft; Z90.49 Acquired absence of other specified parts of digestive tract

== ENCOUNTER 2020-11-04 13:50 | Inpatient (IN) | payer MEDICAID ==
[~2020-11-04] VITALS: Ht 188 cm; Wt 101.6 kg
[2020-11-04 13:55] VITALS: BP 124/79
[2020-11-04 14:15] LABS: ABSOLUTE LYMPHOCYTES 0.9 thou/uL (0.8-5.3); ABSOLUTE MONOCYTES 0.2 thou/uL (0.0-1.2); ABSOLUTE NEUTROPHILS 3.5 thou/uL (1.6-8.1); BASOPHILS 0.9 %; EOSINOPHILS 0.4 %; HEMOGLOBIN 10.9 gm/dL (14.0-18.0); LYMPHOCYTES 19.4 %; MCH 28.3 pg (26.0-34.0); MCHC 33.1 g/dL (28.0-37.0); MCV 85.7 fL (80.0-100.0); MONOCYTES 3.6 %; MPV 9.4 fl. (7.2-11.1); NUCLEATED RBCS 0 /100WBC; PLATELET COUNT* 139 thou/uL (150-400); POLYS 75.7 %; RBC 3.85 mil/uL (4.50-6.00); WBC 4.7 thou/uL (4.0-11.0)
[2020-11-04 14:25] LABS: ANION GAP 13 mmol/L (7-16); BUN 18 mg/dL (7-18); CALCIUM 8.8 mg/dL (8.5-10.1); CHLORIDE 103 mmol/L (98-107); CO2 23 mmol/L (21-32); CREATININE 1.2 mg/dL (0.6-1.3); GLUCOSE 97 mg/dL (70-99); POTASSIUM 3.2 mmol/L (3.5-5.1); SODIUM 139 mmol/L (136-145)
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
[2020-11-04 14:35] LABS: ALBUMIN 3.8 g/dL (3.4-5.0); ALKALINE PHOSPHATASE 56 U/L (46-116); SGOT 25 U/L (15-37); SGPT 28 U/L (30-65); TOTAL BILIRUBIN < 0.1 mg/dL (<0.1-1.0)
[2020-11-04 15:01] LABS: BE -6.4 mmol/L (-2 to +3); PCO2 33.7 mmHg (35.0-45.0); PO2 110.4 mmHg (75.0-100.0); pH 7.353 (7.340-7.450)
[2020-11-04 15:44] LABS: URINE BILIRUBIN NEGATIVE (Negative); URINE BLOOD 2+ (Negative); URINE CLARITY CLEAR; URINE COLOR YELLOW; URINE GLUCOSE-RANDOM NEGATIVE (Negative); URINE KETONES NEGATIVE (Negative); URINE LEUKOCYTES NEGATIVE (Negative); URINE NITRITE NEGATIVE (Negative); URINE PROTEIN NEGATIVE (Negative); URINE SPECIFIC GRAVITY <= 1.005 (1.005-1.030); URINE UROBILINOGEN 0.2 E.U./dl (0.2-1.0)
[2020-11-04 15:53] LABS: AMP/METHAMP Negative (Negative); BARBITURATES Negative (Negative); BENZODIAZEPINES Negative (Negative); COCAINE Negative (Negative); METHADONE Negative (Negative); OPIATES Negative (Negative); PCP Negative (Negative); THC Negative (Negative)
[2020-11-04 16:01] LABS: MUCUS None Seen strn/LPF (None Seen); SQUAMOUS 0-3 Few /LPF (0-3)
[2020-11-04 16:02] LABS: URINE RBC 3-10 Few /HPF (0-2)
[2020-11-04 16:03] LABS: BACTERIA None Seen /HPF (None Seen); CASTS None Seen /LPF (None Seen); CRYSTALS None Seen /LPF (None Seen); URINE WBC None Seen /HPF (0-5)
[2020-11-04 16:08] LABS: ACETAMINOPHEN < 2 ug/mL (10-30); ALCOHOL 167 mg/dL (<10); SALICYLATE < 2.8 mg/dL (2.8-20.0)
[2020-11-04 16:12] LABS: CALCIUM 7.9 mg/dL (8.5-10.1); CREATININE 1.1 mg/dL (0.6-1.3); POTASSIUM 3.1 mmol/L (3.5-5.1)
--- NOTE | 2020-11-04 17:00 | NUR ---
SPOKE TO DR MUNIZ, REQUESTED TO INCREASE D10 TO 100MLS/HR
[2020-11-04 20:01] VITALS: BP 121/70
[2020-11-04 20:18] VITALS: BP 155/91
[2020-11-04 21:00] VITALS: BP 123/54
[2020-11-04 22:01] VITALS: BP 122/63
[2020-11-04 23:00] VITALS: BP 119/73
[2020-11-05] VITALS (15 sets, daily range): BP systolic 94–152; BP diastolic 43–97
--- NOTE | 2020-11-05 00:55 | NUR ---
DR. LOPEZ NOTIFIED OF KUB RESULTS. DR. LOPEZ REFUSED TO ORDER FENTANYL AND BENADRYL IV PRN WHICH PT. HAD REQUESTED WORKS BEST FOR HIS PAIN. ORDERED TYLENOL AND BENADRYL PO PRN, SEE AUG. PT. PROVIDED 2 BOXED LUNCHES. WILL CONTINUE TO MONITOR.
[2020-11-05 09:42] LABS: CREATININE 1.3 mg/dL (0.6-1.3)
[2020-11-05 09:43] LABS: POTASSIUM 4.9 mmol/L (3.5-5.1)
--- NOTE | 2020-11-05 10:21 | NUR ---
9642 ASSUMED CARE OF PATIENT. REVIEWED PLAN OF CARE AND GOALS WITH PATIENT AND HE IS IN AGREEMENT. PLEASE SEE DOCUMENTED ASSESSMENT.
--- NOTE | 2020-11-05 10:41 | NUR ---
0730 ASSUMED CARE OF PATIENT. PLEASE SEE DOCUMENTED ASSESSMENT. PT IS TACHYPNEIC. SAFETY MAINTAINED WITH SITTER. REVIEWED PLAN OF CARE WITH PATIENT AND HE VERBALIZES UNDERSTANDING
--- NOTE | 2020-11-05 13:06 | NUR ---
TELEPSYCH CONSULT COMPLETED. RECTAL FOREIGN BODY REMOVED BY SURGERY TEAM. PT IS MED/SURG STATUS
--- NOTE | 2020-11-05 13:52 | NUR ---
PATIENT TO MOVE TO ROOM 112. REPORT CALLED TO SHAKIR COOLEY
--- NOTE | 2020-11-05 14:21 | NUR ---
PATIENT ARRIVED TO UNIT A TRANSFER FROM ICU AT APPROX. 1410. PATIENT IS A&OX4, PLEASANT AND COOPERATIVE WITH CARES. PATIENT IS UP AD KACI IN ROOM, DENIES PAIN. TACHYCARDIC, LUNGS CLEAR TO AUSCULTATION. CALL LIGHT WITHIN REACH.
--- NOTE | 2020-11-05 15:01 | NUR ---
ICU Rounds: Spoke with patient at bedside and introduced role of CM. [facility] with a friend (Angel). Currently the patient is caring for his friend financially until he recieves his disability. Once Angel recieves disability patient is hopeful he will "share his money". Prior to admission, the patient was independent with ADLs. No hx of DME. No hx of BH services, dialysis or infusion therapy. Patient plans to return to our community hospital at discharge. Patient does not wish to list anyone for emergency contact. PCP name: Tal Jane MD ([place], [place]). Does not have PCP contact information. Current plan is for tele psych consult to be done today to determine recommendations. Patient will xfer out of ICU today to M/S floor. CM to continue to follow for safe dc planning
--- NOTE | 2020-11-05 18:55 | NUR ---
PATIENT HAS REMAINED A&OX4 WHILE ON THIS UNIT. HAS DENIED ANY PAIN AND IS UP AD KACI IN ROOM. CALL LIGHT WITHIN REACH.
[2020-11-06 04:00] LABS: ABSOLUTE LYMPHOCYTES 1.5 thou/uL (0.8-5.3); ABSOLUTE MONOCYTES 0.4 thou/uL (0.0-1.2); ABSOLUTE NEUTROPHILS 3.6 thou/uL (1.6-8.1); BASOPHILS 0.6 %; EOSINOPHILS 0.4 %; HEMATOCRIT 33.4 % (42.0-52.0); LYMPHOCYTES 26.1 %; MCH 28.2 pg (26.0-34.0); MCHC 32.9 g/dL (28.0-37.0); MCV 85.7 fL (80.0-100.0); MONOCYTES 7.8 %; MPV 9.6 fl. (7.2-11.1); NUCLEATED RBCS 0 /100WBC; PLATELET COUNT* 130 thou/uL (150-400); POLYS 65.1 %; RDW-CV 18.5 % (10.5-14.5); WBC 5.6 thou/uL (4.0-11.0)
[2020-11-06 04:06] LABS: CALCIUM 8.1 mg/dL (8.5-10.1); CREATININE 1.3 mg/dL (0.6-1.3); POTASSIUM 4.7 mmol/L (3.5-5.1)
--- NOTE | 2020-11-06 07:38 | NUR ---
PATIENT HAS SLEPT OFF AND ON DURING THE NIGHT. VSS ON RA. MEDICATIONS GIVEN ORDERED AND CHARTED. PATIENT WAS COOPERATIVE WITH NURSING STAFF DURING THE SHIFT. MIDLINE TO TO LEFT UPPER ARM-SL. IV IN LEFT WRIST-SL. PATIENT INSTRUCTED TO USE CALL LIGHT WHEN NEEDING ASSISTANCE. HOURLY ROUNDS MADE. WILL CONTINUE WITH PLAN OF CARE AND NURSING TO MONITOR.
[2020-11-06 08:16] VITALS: BP 132/79
[2020-11-06] MEDS ORDERED: PROTONIX40 M2 PO (09:13)
[2020-11-06 14:19] VITALS: BP 132/79
[2020-11-06 16:41] VITALS: BP 132/79
--- NOTE | 2020-11-06 16:41 | NUR ---
PATIENT WAS GIVEN DISCHARGE INSTRUCTIONS AND MEDICATIONS REVIEWED. IV AND MIDLINE REMOVED PRIOR TO DISCHARGE. PATIENT INSTRUCTED TO LEAVE PRESSURE DRESSING TO MIDLINE SITE FOR 24 HOURS. PATIENT DENIED ANY PAIN/QUESTIONS/CONCERNS PRIOR TO DISCHARGE. PATIENT AMBULATED OFF UNIT AT APPROX. 1625, ACCOMPANIED BY NURSE AND MET WOOD GANG SAWYER AT ER ENTRANCE. PATIENT DEPARTED FACILITY AT 1635.
== END 2020-11-06 16:35 | disposition home or self-care (01) | DRG 918 ==
LOC: M.ERS 13:50 → M.ORTHSURG 15:10 → M.TBA-ER 15:10 → M.ICU 19:57 → M.ORTHSURG 11-05 14:10
PROVIDERS: Emergency Medicine; ADMIT Internal Medicine; ATTEND Internal Medicine
PROC: 05HF33Z Insertion of Infusion Device into Left Cephalic Vein, Percutaneous Approach (ICD-10-PCS; principal; 2020-11-04)
DX: T38.3X1A Poisoning by insulin and oral hypoglycemic [antidiabetic] drugs, accidental (unintentional), initial encounter (principal); K62.5 Hemorrhage of anus and rectum; G89.29 Other chronic pain; M54.9 Dorsalgia, unspecified; R10.9 Unspecified abdominal pain; T18.5XXA Foreign body in anus and rectum, initial encounter; E16.0 Drug-induced hypoglycemia without coma; T38.3X5A Adverse effect of insulin and oral hypoglycemic [antidiabetic] drugs, initial encounter; F99 Mental disorder, not otherwise specified; Z20.822 Contact with and (suspected) exposure to COVID-19; Z90.49 Acquired absence of other specified parts of digestive tract; Z88.6 Allergy status to analgesic agent; Z88.8 Allergy status to other drugs, medicaments and biological substances; Y92.89 Other specified places as the place of occurrence of the external cause

== ENCOUNTER 2020-12-03 15:12 | Emergency (ER) | payer MEDICAID ==
[~2020-12-03] VITALS: Ht 190.5 cm; Wt 113.4 kg
[2020-12-03 15:19] VITALS: BP 134/72
== END 2020-12-03 15:21 | disposition home or self-care (01) ==
LOC: M.ERS 15:12
DX: R53.1 Weakness (principal); Z88.5 Allergy status to narcotic agent; Z88.6 Allergy status to analgesic agent; Z88.8 Allergy status to other drugs, medicaments and biological substances; Z90.49 Acquired absence of other specified parts of digestive tract; Z90.89 Acquired absence of other organs

== ENCOUNTER 2020-12-08 17:09 | Emergency (ER) | payer MEDICAID | END 2020-12-08 17:26 | disposition left against medical advice (07) | LOC: M.ERS 17:09 | DX: Z53.21 Procedure and treatment not carried out due to patient leaving prior to being seen by health care provider (principal) ==

== ENCOUNTER 2020-12-12 17:31 | Emergency (ER) | payer MEDICAID ==
[~2020-12-12] VITALS: Ht 188 cm; Wt 90.7 kg
[2020-12-12 17:35] VITALS: BP 134/86
--- NOTE | 2020-12-15 14:30 | EKG ---
[place] [address] ELECTROCARDIOGRAM REPORT Name: JOHNNY GREENWOOD Room: [facility]#: [id number] Admission: 12/12/20 Attend Phys: Discharge: 12/12/20 Date of : 82 Date of Service: 12/12/20 1733 Report #: [id number] THIS REPORT FOR: //name// [facility] ED Test Date: 2020-12-12 Test Time: 17:33:11 Pat Name: JOHNNY GREENWOOD Department: Room: Gender: [employer]: : 1980 Requested By: Zafar Chance Order Number: [id number] MD: Ender Fisher Measurements Intervals [place] Rate: 80 P: 42 MO: 166 QRS: -13 QRSD: 108 T: 40 QT: 369 QTc: 426 Interpretive Statements Sinus rhythm Probable left atrial enlargement RSR' in V1 or V2, right VCD ST elev, probable normal early repol pattern Compared to ECG 07/31/2020 16:51:41 RSR' in V1 or V2 now present ST (T wave) deviation still present Electronically Signed On 12-15-2020 14:30:19 CDT by Ender Fisher [email or web address] <ELECTRONICALLY SIGNED> By: Ender Fisher MD, [facility] 12/15/20 1430 1733 1733 Ender Fisher MD, [facility] /EPI
== END 2020-12-12 17:46 | disposition left against medical advice (07) ==
LOC: M.ERS 17:31
DX: R07.89 Other chest pain (principal); Z88.6 Allergy status to analgesic agent; Z88.8 Allergy status to other drugs, medicaments and biological substances; Z88.5 Allergy status to narcotic agent; Z98.890 Other specified postprocedural states

== ENCOUNTER 2021-05-13 13:37 | Emergency (ER) | payer MEDICAID | END 2021-05-13 14:07 | disposition left against medical advice (07) | LOC: M.ERS 13:37 | DX: R07.89 Other chest pain (principal); Z53.21 Procedure and treatment not carried out due to patient leaving prior to being seen by health care provider ==

== ENCOUNTER 2021-06-06 18:32 | Emergency (ER) | payer MEDICAID ==
[~2021-06-06] VITALS: Ht 177.8 cm; Wt 77.1 kg
== END 2021-06-06 18:53 | disposition left against medical advice (07) ==
LOC: M.ERS 18:32
DX: R07.89 Other chest pain (principal); R11.2 Nausea with vomiting, unspecified; Z53.21 Procedure and treatment not carried out due to patient leaving prior to being seen by health care provider